=== PATIENT | male | born 1945 | race Caucasian/White ===

== ENCOUNTER 2017-07-27 17:11 | Inpatient (IN) ==
[2017-07-27] MEDS ORDERED: D5% in Water 1,000 ML IVC PRN (23:40)
[2017-07-27] MEDS ORDERED: Dextrose Gel 15 GM/37.5 ML TUBE PO PRN ×2 (23:40)
[2017-07-27] MEDS ORDERED: *HR* Dextrose 50 % in Water (Syg) 50 ML SYRINGE IVP PRN (23:40)
[2017-07-27] MEDS ORDERED: predniSONE 10 MG TABLET PO SCH (23:45)
[2017-07-27] MEDS ORDERED: Ipratropium/Albuterol Neb 3 ML IH PRN (23:53)
[2017-07-28 01:16] LABS: Bilirubin,Urine Negative (Negative); Blood,Urine Trace-intact (Negative); Clarity,Urine Clear (Clear); Color,Urine Yellow (Yellow); Glucose,Urine (UA) Normal (Normal); Ketones,Urine Negative (Negative); Leukocyte Esterase,Urine Negative (Negative); Nitrite,Urine Negative (Negative); Protein,Urine 30 mg/dL (Neg-Trace); Specific Gravity,Urine 1.015 (1.010-1.025); Urobilinogen,Urine Normal (Normal)
[2017-07-28 01:24] LABS: Bacteria,Urine Few per hpf (None-Few); RBC,Urine 0-3 per hpf (0-3); Squamous Epithelial Cell,Urine Few per lpf (None-Few)
[2017-07-28 04:58] LABS: Basophils % 0.2 %; Eosinophils # 0.1 K/mcL (0.0-0.6); Eosinophils % 0.7 %; Hematocrit 28.1 % (37.5-50.1); Hemoglobin 9.2 g/dL (12.9-16.9); Immature Granulocytes % 0.2 % (0-4); Lymphocytes # 1.1 K/mcL (0.6-4.6); Mean Corpuscular HGB Conc 32.7 g/dL (31.6-35.5); Mean Corpuscular Hemoglobin 29.5 pg (28.0-33.3); Mean Corpuscular Volume 90.1 fL (83.0-100.0); Mean Platelet Volume 9.7 fL (9.4-12.4); Monocytes # 0.4 K/mcL (0.0-1.3); Monocytes % 4.2 %; Neutrophils # 8.7 K/mcL (1.6-8.9); Platelet Count 212 K/mcL (140-400); Red Blood Count 3.12 M/mcL (4.19-5.50); Red Cell Distribution Width 14.1 % (11.5-14.5); Segmented Neutrophils % 83.7 %
[2017-07-28 05:05] LABS: INR 1.4; Prothrombin Time 15.6 Seconds (9.4-12.1)
[2017-07-28 05:16] LABS: BUN/Creatinine Ratio 29 (6-26); Blood Urea Nitrogen 22 mg/dL (8-23); Carbon Dioxide 32 mEq/L (23-29); Chloride 99 mEq/L (98-107); Glucose 184 mg/dL (70-105); Osmolality,Calculated 296 (280-300); Potassium 3.4 mEq/L (3.5-5.1); Sodium 139 mEq/L (136-145); eGFR For African Americans > 60 (> 60); eGFR For Non-African Americans > 60 (> 60)
[2017-07-28] MEDS: Budesonide/Formoterol 80/4.5 MDI IH SCH ×2 (09:03→21:38)
[2017-07-28] MEDS: Tiotropium 18 MCG inhalation IH SCH ×2 (09:04→09:09)
[2017-07-28] MEDS: Valsartan 160 MG TABLET PO SCH (09:09)
[2017-07-28] MEDS: *HR* Metformin 500 MG TABLET PO SCH ×2 (09:10→20:31)
[2017-07-28] MEDS: Aspirin 81 MG TAB.CHEW PO SCH (09:10)
[2017-07-28] MEDS: Apixaban 5 MG TABLET PO SCH ×2 (09:10→20:31)
[2017-07-28] MEDS: hydroCHLOROthiazide 25 MG TABLET PO SCH (09:10)
[2017-07-28] MEDS: dilTIAZem HCl 60 MG TABLET PO SCH ×3 (09:10→20:31)
[2017-07-28] MEDS: Insulin LISPRO 300 UNITS/3 ML VIAL SQ SCH ×4 (09:17→20:30)
--- NOTE | 2017-07-28 10:31 | Internal Med History&Physical ---
Date of Encounter: 07/28/17 Time of Encounter: 10:30 Assessment and Plan (1) Physical deconditioning Current visit: No Status: Acute here for pt, ot (2) Sacral decubitus ulcer, stage III Current visit: Yes Status: Acute wound consult (3) DM2 (diabetes mellitus, type 2) Current visit: Yes Status: Acute will continue home medication. add accuchecks and ssi. his hga1c was <7 at [facility] Qualifiers: Diabetes mellitus nursing home insulin use: without termite control servicer use Diabetes mellitus complication status: without complication Qualified Code(s): E11.9 - Type 2 diabetes mellitus without complications (4) COPD exacerbation Current visit: No Status: Acute I added by mouth prednisone at 60 mg daily with a taper. He may require some IV Solu-Medrol. He usually gets pretty bad COPD exacerbations we will see how he does with the by mouth prednisone his home medications and duo nebs. (5) Vitamin D deficiency Current visit: No Status: Acute cont home meds (6) Hyperlipidemia Current visit: No Status: Acute cont home meds Qualifiers: Hyperlipidemia type: mixed hyperlipidemia Qualified Code(s): E78.2 - Mixed hyperlipidemia (7) Obstructive sleep apnea Current visit: No Status: Acute (8) Hypertension Current visit: No Status: Acute will continue home medication Qualifiers: Hypertension type: essential hypertension Qualified Code(s): I10 - Essential (primary) hypertension Internal Medicine - H&P: HPI Chief complaint: here for rehab Admitted From: Hospital to Hospital Transfer Plans for Post Hospital Care: Home History of present illness: Mr. Gary is a 71 year old male Who had cervical disc surgery of C2-3-[address] [facility] at the beginning of June 2017. He was at home walking around the yard he tripped over his cane he fell on his left side hurt his left shoulder. He was having difficulty ambulating family brought him to [facility]. He had an x-ray of the shoulder hip-knee MRI of the cervical lumbar and thoracic spine. No acute changes were found he was sent here for rehabilitation. He has been frustrated with his ability to get around at home he struggling to care for himself his has to do most of his daily needs. He was not dizzy he did not pass out he did not have any syncope he did not have any chest pain or palpitations at the time of the event occurred. His leg is feeling better his shoulder is still a little bit sore but that is improving. He was having difficulty getting up back and forth to the bedside commode at [facility] he came here for rehabilitation to get him back to be independent in his own home. He does have a sacral decubitus that occurred while he was in the hospital at [facility] with the first surgery he was seeing wound care for that. It is been tracking deeper wound consult has been placed for that. He has been wheezing he does wheeze a lot he is on daily steroids chronically but his wheezing and shortness of breath has gotten a little bit worse he has a cough nothing comes up he does not have a fever or chills. He is not having any numbness tingling or focal weakness. Not have a headache he does not have vision changes. Past Med Surg Social Fam HX - Past Medical History Medical history: arthritis, atrial fibrillation, COPD, coronary artery disease, DVT, diabetes, GERD, hyperlipidemia, hypertension, other (vitamin d def,CRISTA, cervical disc disease) Psychiatric history: depression - Past Surgical History Surgical History: herniorrhaphy (umbilical 2001), other (disc cervical 2000, cervical c2,3,4,5,23 june 2017, cardiac cath 09/10/17,) - Social History Smoking Status: Former smoker Smokeless Tobacco Status: No Alcohol use: none Drug use: none - Family History Brother Hx Family Endocrine Disorder: Yes (Diabetes mellitus) Hx Family Neuromuscular Disorders: Yes (ezequiel gehrig) Daughter Hx Family Endocrine Disorder: Yes (Diabetes mellitus) Mother Living Status: Age at : 42 Hx Family Cardiac Disorders: Yes Internal Medicine - H&P: Meds Albuterol Sulfate [Albuterol Inhaler] 2 puff PO Q4HR PRN 01/18/15 [History] Aspirin 81 mg PO DAILY 01/18/15 [History] Valsartan [Diovan] 320 mg PO DAILY 01/18/15 [History] hydroCHLOROthiazide [Hydrochlorothiazide] 25 mg PO DAILY #30 tablet 04/02/15 [Rx ] Sertraline [Zoloft] 50 mg PO DAILY 06/18/17 [History] dilTIAZem HCl [Cardizem] 120 mg PO TID 06/18/17 [History] metFORMIN [Glucophage] 500 mg PO BID 06/18/17 [History] PredniSONE [Deltasone] 10 mg PO HS 07/17/17 [History] Acetaminophen 650 mg PO Q4HR PRN 07/27/17 [History] Apixaban [Eliquis] 5 mg PO BID 07/27/17 [History] Budesonide/Formoterol 80/4.5 [Symbicort 80/4.5] 1 puff PO BID 07/27/17 [History ] Ergocalciferol (VITAMIN D2) [Drisdol (50,000 Unit)] 50,000 units PO FR 07/27/17 [History] Ipratropium/Albuterol Neb [Duoneb] 3 ml PO Q4HR PRN 07/27/17 [History] Metoprolol [Lopressor] 25 mg PO BID 07/27/17 [History] Tiotropium [Spiriva] 18 mcg IH DAILY 07/27/17 [History] 3 Allergy/AdvReac Type Severity Reaction Status Date / Time lisinopril AdvReac Mild Cough Verified 03/27/15 22:57 All Systems PM: A 10-system review of systems was performed and is negative for pertinent findings except as documented above in the HPI. - Constitutional Constitutional: fatigue, falls, weakness (generalized), no fever(s), no night sweats - EENT Eyes: no change in vision - Cardiovascular Cardiovascular ROS IM: dyspnea on exertion, palpitations, no chest pain - Respiratory Respiratory: cough, wheezing - Gastrointestinal Gastrointestinal: no constipation, no diarrhea, no loose stools, no nausea, no vomiting - Genitourinary Genitourinary ROS male: no dysuria, no hematuria - Musculoskeletal Musculoskeletal ROS IM: limited range of motion (neck), muscle weakness ( generalized) - Integumentary Integumentary IM: skin ulcer (sacral decub), no pruritus, no rash - Neurological Neurological ROS: no focal weakness, no headache(s) - Psychiatric Psychiatric: depression (getting down with lack of mobility wants to increase his sertraline) - Hematologic/Lymphatic Hematologic/Lymphatic: easy bruising (with the anticoagulation) - Constitutional Vitals: Temp Pulse Resp BP Pulse Ox 97.9 F 76 16 136/77 98 07/28/17 07:00 07/28/17 07:00 07/28/17 07:00 07/28/17 07:00 07/28/17 07:00 General appearance: Present: A&O X 3, morbidly obese, no acute distress - Head Head exam: Present: atraumatic, normocephalic - Neck Neck exam general surgery: Present: supple. Absent: full ROM (decreased rom since surgery posterrior incision healing well), tenderness - Respiratory Respiratory exam: Present: prolonged expiratory phase, wheezes - Cardiovascular Cardiovascular exam: Present: RRR, +S1, +S2 - GI/Abdominal GI/Abdominal exam: Present: distended, normal bowel sounds, soft, no peritoneal signs. Absent: guarding, rebound, tenderness - Extremities Exam Extremities exam: Present: normal capillary refill, warm. Absent: pedal edema - Skin Skin exam: Present: dry, warm Internal Med - H&P Results - Labs CBC & Chem 7: 07/28/17 04:52 07/28/17 04:52 Labs: Short CBC 07/28/17 Range/Units 04:52 WBC 10.4 (4.3-11.1) K/mcL Hgb 9.2 L (12.9-16.9) g/dL Hct 28.1 L (37.5-50.1) % Plt Count 212 (140-400) K/mcL Neutrophils # 8.7 (1.6-8.9) K/mcL BMP 07/28/17 04:52 Sodium 139 Potassium 3.4 L Chloride 99 Carbon Dioxide 32 H BUN 22 Creatinine 0.76 Glucose 184 H Calcium 9.0 Urine 07/28/17 Range/Units 00:26 Urine Color Yellow (Yellow) Urine Clarity Clear (Clear) Urine pH 7.0 (5.0-8.0) pH Units Ur Specific [place] 1.015 (1.010-1.025) Urine Protein 30 H (Neg-Trace) mg/dL Urine Glucose (UA) Normal (Normal) mg/dL
[2017-07-28] MEDS: predniSONE 20 MG TABLET PO SCH (12:45)
[2017-07-28] MEDS: Acetaminophen 325 MG TABLET PO PRN (16:40)
[2017-07-29 05:19] LABS: Basophils % 0.1 %; Hemoglobin 8.8 g/dL (12.9-16.9); Immature Granulocytes % 0.5 % (0-4); Lymphocytes # 1.8 K/mcL (0.6-4.6); Lymphocytes % 17.2 %; Mean Corpuscular HGB Conc 32.6 g/dL (31.6-35.5); Mean Corpuscular Volume 89.1 fL (83.0-100.0); Mean Platelet Volume 10.2 fL (9.4-12.4); Monocytes # 0.5 K/mcL (0.0-1.3); Monocytes % 5.3 %; Neutrophils # 7.8 K/mcL (1.6-8.9); Platelet Count 241 K/mcL (140-400); Red Blood Count 3.03 M/mcL (4.19-5.50); Segmented Neutrophils % 76.9 %
[2017-07-29 05:36] LABS: BUN/Creatinine Ratio 33 (6-26); Blood Urea Nitrogen 36 mg/dL (8-23); Calcium 9.1 mg/dL (8.6-10.3); Carbon Dioxide 28 mEq/L (23-29); Chloride 99 mEq/L (98-107); Glucose 188 mg/dL (70-105); Osmolality,Calculated 299 (280-300); Potassium 3.5 mEq/L (3.5-5.1); Sodium 138 mEq/L (136-145); eGFR For African Americans > 60 (> 60); eGFR For Non-African Americans > 60 (> 60)
[2017-07-29] MEDS: predniSONE 20 MG TABLET PO SCH (08:21)
[2017-07-29] MEDS: Aspirin 81 MG TAB.CHEW PO SCH (08:21)
[2017-07-29] MEDS: dilTIAZem HCl 60 MG TABLET PO SCH ×3 (08:21→20:16)
[2017-07-29] MEDS: hydroCHLOROthiazide 25 MG TABLET PO SCH (08:21)
[2017-07-29] MEDS: predniSONE 10 MG TABLET PO SCH (08:21)
[2017-07-29] MEDS: Valsartan 160 MG TABLET PO SCH (08:22)
[2017-07-29] MEDS: *HR* Metformin 500 MG TABLET PO SCH ×2 (08:22→20:17)
[2017-07-29] MEDS: Apixaban 5 MG TABLET PO SCH ×2 (08:22→20:17)
[2017-07-29] MEDS: Acetaminophen 325 MG TABLET PO PRN ×2 (08:30→15:10)
[2017-07-29] MEDS: Budesonide/Formoterol 80/4.5 MDI IH SCH ×2 (08:31→23:02)
[2017-07-29] MEDS: Tiotropium 18 MCG inhalation IH SCH (08:31)
[2017-07-29] MEDS: Insulin LISPRO 300 UNITS/3 ML VIAL SQ SCH ×4 (08:33→20:20)
[2017-07-30] MEDS: Acetaminophen 325 MG TABLET PO PRN ×3 (05:49→16:37)
[2017-07-30] MEDS: Insulin LISPRO 300 UNITS/3 ML VIAL SQ SCH ×4 (08:18→20:27)
[2017-07-30] MEDS: Valsartan 160 MG TABLET PO SCH (08:28)
[2017-07-30] MEDS: dilTIAZem HCl 60 MG TABLET PO SCH ×3 (08:28→20:23)
[2017-07-30] MEDS: Apixaban 5 MG TABLET PO SCH ×2 (08:28→20:24)
[2017-07-30] MEDS: *HR* Metformin 500 MG TABLET PO SCH ×2 (08:28→20:24)
[2017-07-30] MEDS: predniSONE 10 MG TABLET PO SCH (08:28)
[2017-07-30] MEDS: hydroCHLOROthiazide 25 MG TABLET PO SCH (08:28)
[2017-07-30] MEDS: predniSONE 20 MG TABLET PO SCH (08:28)
[2017-07-30] MEDS: Aspirin 81 MG TAB.CHEW PO SCH (08:28)
[2017-07-30] MEDS: Budesonide/Formoterol 80/4.5 MDI IH SCH ×2 (08:29→22:15)
[2017-07-30] MEDS: Tiotropium 18 MCG inhalation IH SCH (08:29)
--- NOTE | 2017-07-30 19:36 | Internal Med Progress Note ---
Date of Encounter: 07/29/17 Time of Encounter: 13:00 - Assessment and plan (1) COPD exacerbation Current Visit: No Status: Acute Assessment and plan: There was some discrepancy regarding his steroid burst with taper. I advised nursing to discard the 10 mg per day prednisone dose and continue just on the increased dose that was added. He seems symptomatically unchanged from yesterday but his exam is unremarkable. Saturations are adequate. We will continue with steroids and when necessary aerosols as needed. (2) Sacral decubitus ulcer, stage III Current Visit: Yes Status: Acute Assessment and plan: Not examined today as patient is upright in chair. Different to wound care and Dr. Bonner. (3) DM2 (diabetes mellitus, type 2) Current Visit: Yes Status: Acute Assessment and plan: Clinically stable. We will continue as planned but will need to watch as he is on increased steroid burst. Qualifiers: Diabetes mellitus fci insulin use: without bed bug exterminator use Diabetes mellitus complication status: without complication Qualified Code(s): E11.9 - Type 2 diabetes mellitus without complications (4) Physical deconditioning Current Visit: No Status: Acute Assessment and plan: We will continue just therapies as planned. - Subjective Interval history: Patient seen in cross coverage for Dr. Bonner. The patient was evaluated by me yesterday but the note was not complete. This documentation is being completed today for that reason. Patient has no complaint of chest discomfort, dyspnea, orthopnea, palpitations, nausea or vomiting, constipation or diarrhea, other changes in bowel habits, difficulty with urination, rash or itching, or other new complaints, except as mentioned above. Review of systems is otherwise negative. - Constitutional Vitals: Temp Pulse Resp BP Pulse Ox 98.4 F 76 16 99/53 96 07/30/17 19:17 07/30/17 19:17 07/30/17 19:17 07/30/17 19:17 07/30/17 19:17 General appearance: Present: morbidly obese Exam: Examination: (Except as mentioned above): General: In no apparent distress. Alert and oriented 3. Nondiaphoretic. Head: Atraumatic and normocephalic. Respiratory: No use of accessory muscles. Lungs with sonorous rhonchi, throughout. Airflow seems good, however. Cardiovascular: Regular rate and rhythm without murmur appreciated. Abdomen: Bowel sounds are normal. No hepatosplenomegaly mass or tenderness appreciated. Obese and therefore difficult to palpate deeply. Patient is examined upright in chair and this also limits exam. Extremities: No cyanosis clubbing but does have 2+ left and 1+ right edema at calves and ankles. This is noted by patient to be unchanged from previous. Skin: Warm and non-diaphoretic with no new lesions noted. Internal Medicine: Result - Labs CBC & Chem 7: 07/29/17 05:00 07/29/17 05:00 - ABG Interpretation ABG results: PT/INR, D-dimer PT 15.6 Seconds (9.4-12.1) H 07/28/17 04:52 Consult Discharge Plan - Plan Referrals: Padmini Bonner MD [Primary Care Provider] -
--- NOTE | 2017-07-30 19:51 | Internal Med Progress Note ---
Date of Encounter: 07/30/17 Time of Encounter: 19:47 - Assessment and plan (1) COPD exacerbation Current Visit: No Status: Acute Assessment and plan: Much improved versus yesterday or day before, on steroid burst. (2) Sacral decubitus ulcer, stage III Current Visit: Yes Status: Acute Assessment and plan: Not examined today as patient is upright in chair, again. Differed to wound care and Dr. Bonner. (3) DM2 (diabetes mellitus, type 2) Current Visit: Yes Status: Acute Assessment and plan: Clinically stable. We will continue as planned but will need to watch as he is on increased steroid burst he is actually doing pretty well, given his steroids. Qualifiers: Diabetes mellitus long term care pharmacist insulin use: without residential use Diabetes mellitus complication status: without complication Qualified Code(s): E11.9 - Type 2 diabetes mellitus without complications (4) Physical deconditioning Current Visit: No Status: Acute Assessment and plan: We will continue therapies as planned. (5) Insomnia Current Visit: No Status: Acute Assessment and plan: Patient states that he has always had trouble sleeping away from home and this is a big problem here. He states that last night was the first night he slept reasonably at all, sleeping only about 2 hours. He requests a medication for sleep, tonight. Qualifiers: Insomnia type: primary Qualified Code(s): F51.01 - Primary insomnia - Subjective Interval history: Patient seen in cross coverage for Dr. Bonner. Patient is breathing much better today than yesterday. He has not needed oxygen until this evening when it was noted that he has a saturation of 99% on room air. He remains concerned about his DVT and this resolution with ankle edema. No other acute issues. Patient has no complaint of chest discomfort, dyspnea, orthopnea, palpitations, nausea or vomiting, constipation or diarrhea, other changes in bowel habits, difficulty with urination, rash or itching, or other new complaints, except as mentioned above. Review of systems is otherwise negative. - Constitutional Vitals: Temp Pulse Resp BP Pulse Ox 98.4 F 76 16 99/53 96 07/30/17 19:17 07/30/17 19:17 07/30/17 19:17 07/30/17 19:17 07/30/17 19:17 General appearance: Present: morbidly obese Exam: Examination: (Except as mentioned above): General: In no apparent distress. Alert and oriented 3. Nondiaphoretic. Head: Atraumatic and normocephalic. Respiratory: No use of accessory muscles. Lungs are nearly clear with only occasional sonorous rhonchi, no inhibition of airflow. Cardiovascular: Regular rate and rhythm without murmur appreciated. Abdomen: Bowel sounds are normal. No hepatosplenomegaly mass or tenderness appreciated. Obese and therefore difficult to palpate deeply. Patient is examined upright in chair and this also limits exam. Extremities: No cyanosis clubbing or change in edema. Still with 1-2+ pitting, left worse on right.Skin: Warm and non-diaphoretic with no new lesions noted. Cervical wound noted to be intact and dry. Internal Medicine: Result - Labs CBC & Chem 7: 07/29/17 05:00 07/29/17 05:00 - ABG Interpretation ABG results: PT/INR, D-dimer PT 15.6 Seconds (9.4-12.1) H 07/28/17 04:52 Consult Discharge Plan - Plan Referrals: Padmini Bonner MD [Primary Care Provider] -
[2017-07-31] MEDS: Acetaminophen 325 MG TABLET PO PRN ×2 (04:42→09:58)
--- NOTE | 2017-07-31 09:33 | Internal Med Progress Note ---
Date of Encounter: 07/31/17 Time of Encounter: 12:24 - Assessment and plan (1) Physical deconditioning Current Visit: Yes Status: Acute Assessment and plan: here for pt ot after deconditioning after cervical spine surgery (2) Sacral decubitus ulcer, stage III Current Visit: Yes Status: Acute Assessment and plan: wound care (3) DM2 (diabetes mellitus, type 2) Current Visit: Yes Status: Acute Assessment and plan: hga1c in range getting ssi and home meds Qualifiers: Diabetes mellitus correction insulin use: without extermination supervisor use Diabetes mellitus complication status: without complication Qualified Code(s): E11.9 - Type 2 diabetes mellitus without complications (4) COPD exacerbation Current Visit: No Status: Acute Assessment and plan: on home meds a steroid taper, improving (5) Vitamin D deficiency Current Visit: No Status: Acute Assessment and plan: home meds (6) Hyperlipidemia Current Visit: No Status: Acute Assessment and plan: home meds Qualifiers: Hyperlipidemia type: mixed hyperlipidemia Qualified Code(s): E78.2 - Mixed hyperlipidemia (7) Obstructive sleep apnea Current Visit: No Status: Acute (8) Hypertension Current Visit: No Status: Acute Assessment and plan: stable on home meds Qualifiers: Hypertension type: essential hypertension Qualified Code(s): I10 - Essential (primary) hypertension (9) Fall Current Visit: Yes Status: Acute Assessment and plan: likely due to the ambien he had last night for sleep. discussed no more sleeping pills for him now Qualifiers: Encounter type: initial encounter Qualified Code(s): W19.XXXA - Unspecified fall, initial encounter - Subjective Interval history: got ambien for sleep last night. fell early this morning. slid out of bed getting a water bottle that fell on the floor. denies dizzy, pereira, loc, no n/v. no cp no palp. he had reached too fall. states did not fall hard, denies pain or skin tear or injury. bowels and bladder ok, sob better cough better - Constitutional Vitals: Temp Pulse Resp BP Pulse Ox 97.7 F 72 20 118/68 95 07/31/17 00:30 07/31/17 00:30 07/31/17 00:30 07/31/17 00:30 07/31/17 00:30 General appearance: Present: A&O X 3, morbidly obese, no acute distress - Head Head exam: Present: atraumatic, normocephalic - Respiratory Respiratory exam: Present: CTAB - Cardiovascular Cardiovascular exam: Present: RRR, +S2. Absent: +S1, systolic murmur - GI/Abdominal GI/Abdominal exam: Present: normal bowel sounds, soft. Absent: guarding, tenderness, no peritoneal signs - Extremities Exam Extremities exam: Present: pedal edema, warm - Skin Skin exam: Present: dry, warm Internal Medicine: Result - Labs CBC & Chem 7: 07/29/17 05:00 07/29/17 05:00 - ABG Interpretation ABG results: PT/INR, D-dimer PT 15.6 Seconds (9.4-12.1) H 07/28/17 04:52 Consult Discharge Plan - Plan Referrals: Padmini Bonner MD [Primary Care Provider] -
[2017-07-31] MEDS: Aspirin 81 MG TAB.CHEW PO SCH (09:50)
[2017-07-31] MEDS: Apixaban 5 MG TABLET PO SCH ×2 (09:50→20:50)
[2017-07-31] MEDS: Tiotropium 18 MCG inhalation IH SCH (09:50)
[2017-07-31] MEDS: hydroCHLOROthiazide 25 MG TABLET PO SCH (09:50)
[2017-07-31] MEDS: dilTIAZem HCl 60 MG TABLET PO SCH ×3 (09:50→20:49)
[2017-07-31] MEDS: Valsartan 160 MG TABLET PO SCH (09:51)
[2017-07-31] MEDS: *HR* Metformin 500 MG TABLET PO SCH ×2 (09:51→20:50)
[2017-07-31] MEDS: Budesonide/Formoterol 80/4.5 MDI IH SCH ×2 (09:51→20:52)
[2017-07-31] MEDS: Insulin LISPRO 300 UNITS/3 ML VIAL SQ SCH ×4 (09:52→20:50)
[2017-07-31] MEDS: predniSONE 20 MG TABLET PO SCH (09:53)
[2017-07-31] MEDS: predniSONE 10 MG TABLET PO SCH (09:53)
[2017-07-31] MEDS ORDERED: Vancomycin (wt based) 1,000 MG VIAL IVPB SCH (15:00)
[2017-07-31 15:08] LABS: Basophils % 0.1 %; Hematocrit 25.1 % (37.5-50.1); Hemoglobin 8.2 g/dL (12.9-16.9); Immature Granulocytes % 1.4 % (0-4); Lymphocytes # 1.5 K/mcL (0.6-4.6); Lymphocytes % 8.5 %; Mean Corpuscular HGB Conc 32.7 g/dL (31.6-35.5); Mean Corpuscular Hemoglobin 29.4 pg (28.0-33.3); Monocytes # 0.4 K/mcL (0.0-1.3); Monocytes % 2.2 %; Neutrophils # 15.5 K/mcL (1.6-8.9); Nucleated Red Blood Cells 0.2 /100 WBC (0); Platelet Count 399 K/mcL (140-400); Red Blood Count 2.79 M/mcL (4.19-5.50); Red Cell Distribution Width 14.3 % (11.5-14.5); Segmented Neutrophils % 87.8 %
[2017-07-31 15:23] LABS: Calcium 9.5 mg/dL (8.6-10.3); Potassium 4.6 mEq/L (3.5-5.1)
[2017-07-31] MEDS: Cefepime HCl 2,000 MG in Water for inj. (sterile) 20 ML 20 ML IVP SCH (18:06)
--- NOTE | 2017-07-31 19:59 | Physcial Medicine-Consult Note ---
Date of Encounter: 07/31/17 Time of Encounter: 13:00 Physical Medicine - AP (1) Physical deconditioning Status: Acute Assessment and plan: Total assist for toileting. Slow gains. Had an off day today. His anemia and CKD may be playing into this as well as hold over for bowel meds and sleeping pill. He is very debilitated. Code(s): R53.81 - Other malaise SNOMED Code(s): 312617736 Physical Medicine - HPI - Data of Consult Requesting Physician: Padmini Bonner, Primary Care Provider: Padmini Bonner, - Consult Narrative History of present illness: Mr. Gary is a 71 year old male Who had cervical disc surgery of C2-3-4 5 and 6 at [facility] at the beginning of June 2017. He was at home walking around the yard he tripped over his cane he fell on his left side hurt his left shoulder. He was having difficulty ambulating family brought him to [facility]. CC: Padmini Bonner, Past Med Surg Social Fam HX - Past Medical History Medical history: arthritis, atrial fibrillation, COPD, coronary artery disease, DVT, diabetes, GERD, hyperlipidemia, hypertension, other (vitamin d def,CRISTA, cervical disc disease) Psychiatric history: depression - Past Surgical History Surgical History: herniorrhaphy (umbilical 2001), other (disc cervical 2000, cervical c2,3,4,5,23 june 2017, cardiac cath 09/10/17,) - Social History Smoking Status: Former smoker Smokeless Tobacco Status: No Alcohol use: none Drug use: none - Family History Mother Living Status: Age at : 42 Hx Family Cardiac Disorders: Yes Brother Hx Family Endocrine Disorder: Yes (Diabetes mellitus) Hx Family Neuromuscular Disorders: Yes (ezequiel gehrig) Daughter Hx Family Endocrine Disorder: Yes (Diabetes mellitus) Medications and Allergies Albuterol Sulfate [Albuterol Inhaler] 2 puff PO Q4HR PRN 01/18/15 [History] Aspirin 81 mg PO DAILY 01/18/15 [History] Valsartan [Diovan] 320 mg PO DAILY 01/18/15 [History] hydroCHLOROthiazide [Hydrochlorothiazide] 25 mg PO DAILY #30 tablet 04/02/15 [Rx ] Sertraline [Zoloft] 50 mg PO DAILY 06/18/17 [History] dilTIAZem HCl [Cardizem] 120 mg PO TID 06/18/17 [History] metFORMIN [Glucophage] 500 mg PO BID 06/18/17 [History] PredniSONE [Deltasone] 10 mg PO HS 07/17/17 [History] Acetaminophen 650 mg PO Q4HR PRN 07/27/17 [History] Apixaban [Eliquis] 5 mg PO BID 07/27/17 [History] Budesonide/Formoterol 80/4.5 [Symbicort 80/4.5] 1 puff PO BID 07/27/17 [History ] Ergocalciferol (VITAMIN D2) [Drisdol (50,000 Unit)] 50,000 units PO FR 07/27/17 [History] Ipratropium/Albuterol Neb [Duoneb] 3 ml PO Q4HR PRN 07/27/17 [History] Metoprolol [Lopressor] 25 mg PO BID 07/27/17 [History] Tiotropium [Spiriva] 18 mcg IH DAILY 07/27/17 [History] 3 Allergy/AdvReac Type Severity Reaction Status Date / Time lisinopril AdvReac Mild Cough Verified 03/27/15 22:57 All systems: reviewed and no additional remarkable complaints except as stated Physical Medicine - Exam - Constitutional Vitals: Temp Pulse Resp BP Pulse Ox 98.0 F 75 18 108/67 95 07/31/17 19:16 07/31/17 19:16 07/31/17 19:16 07/31/17 19:16 07/31/17 19:16 - Extremities Exam Additional comments: Strength 4-/5 throughout. Physical Medicine - Results - Labs CBC & Chem 7: 07/31/17 14:55 07/31/17 14:55 Labs: Short CBC 07/31/17 Range/Units 14:55 WBC 17.6 H D (4.3-11.1) K/mcL Hgb 8.2 L (12.9-16.9) g/dL Hct 25.1 L (37.5-50.1) % Plt Count 399 D (140-400) K/mcL Neutrophils # 15.5 H (1.6-8.9) K/mcL BMP 07/31/17 14:55 Sodium 138 Potassium 4.6 Chloride 101 Carbon Dioxide 25 BUN 78 H Creatinine 1.62 H Glucose 184 H Calcium 9.5 Anemia of CKD, Leucocytosis - Impressions ITS Impressions Chest X-Ray 07/28/17 11:02 IMPRESSION: No acute process. Findings of COPD. Stable exam. D/ / Curtis Hill MD / Curtis Hill MD Interpreting Provider: Curtis Hill MD Consult Discharge Plan - Plan Referrals: Padmini Bonner MD [Primary Care Provider] -
[2017-08-01] MEDS: Cefepime HCl 2,000 MG in Water for inj. (sterile) 20 ML 20 ML IVP SCH ×2 (06:11→16:58)
[2017-08-01] MEDS: Insulin LISPRO 300 UNITS/3 ML VIAL SQ SCH ×3 (07:47→16:59)
[2017-08-01] MEDS: dilTIAZem HCl 60 MG TABLET PO SCH ×3 (07:47→18:56)
[2017-08-01] MEDS: hydroCHLOROthiazide 25 MG TABLET PO SCH (07:59)
[2017-08-01] MEDS: *HR* Metformin 500 MG TABLET PO SCH (08:04)
[2017-08-01] MEDS: predniSONE 20 MG TABLET PO SCH (08:04)
[2017-08-01] MEDS: Aspirin 81 MG TAB.CHEW PO SCH (08:04)
[2017-08-01] MEDS: Valsartan 160 MG TABLET PO SCH (08:04)
[2017-08-01] MEDS: Tiotropium 18 MCG inhalation IH SCH (08:04)
[2017-08-01] MEDS: predniSONE 10 MG TABLET PO SCH (08:04)
[2017-08-01] MEDS: Apixaban 5 MG TABLET PO SCH (08:04)
[2017-08-01] MEDS: Budesonide/Formoterol 80/4.5 MDI IH SCH (08:05)
[2017-08-01] MEDS ORDERED: Lidocaine 1% 20 ML MDV INFILT ONE (13:42)
[2017-08-01] MEDS ORDERED: 0.9 % Sodium Chloride 1,000 ML IVC ONE (15:53)
[2017-08-01 16:44] LABS: Calcium 8.6 mg/dL (8.6-10.3); Potassium 3.7 mEq/L (3.5-5.1)
--- NOTE | 2017-08-01 16:49 | Internal Med Progress Note ---
Date of Encounter: 08/01/17 - Assessment and plan (1) Physical deconditioning Current Visit: Yes Status: Acute Assessment and plan: here for pt ot after deconditioning after cervical spine surgery (2) Sacral decubitus ulcer, stage III Current Visit: Yes Status: Acute Assessment and plan: He went down to [place] today for PICC line for IV antibiotics he also saw Sever he is to get a bone biopsy on here at [facility]. We will continue the cefepime and vancomycin. He also had an MRI today as well. Awaiting the final report he had his blood pressures a been a little low I added some IV fluids this could be due to a recent change in his blood pressure pills by cardiology we will hold those and see how his pressure response to IV fluids lactic acid has been drawn. Blood cultures are pending (3) DM2 (diabetes mellitus, type 2) Current Visit: Yes Status: Acute Assessment and plan: hga1c in range getting ssi and home meds Qualifiers: Diabetes mellitus fpc insulin use: without intermediate accountant use Diabetes mellitus complication status: without complication Qualified Code(s): E11.9 - Type 2 diabetes mellitus without complications (4) COPD exacerbation Current Visit: No Status: Acute Assessment and plan: on home meds a steroid taper, improving (5) Vitamin D deficiency Current Visit: No Status: Acute Assessment and plan: home meds (6) Hyperlipidemia Current Visit: No Status: Acute Assessment and plan: home meds Qualifiers: Hyperlipidemia type: mixed hyperlipidemia Qualified Code(s): E78.2 - Mixed hyperlipidemia (7) Obstructive sleep apnea Current Visit: No Status: Acute (8) Hypertension Current Visit: No Status: Acute Assessment and plan: Blood pressure is been lower today holding the Lopressor. In the IV fluids. Qualifiers: Hypertension type: essential hypertension Qualified Code(s): I10 - Essential (primary) hypertension (9) Fall Current Visit: Yes Status: Acute Qualifiers: Encounter type: initial encounter Qualified Code(s): W19.XXXA - Unspecified fall, initial encounter - Subjective Interval history: He had quite an eventful day he went down to [facility] to see Dr. Fisher plan is to get a bone biopsy done in the area of his sacral decubitus about osteomyelitis he had an MRI he also got a PICC line his blood pressures up in the low started him on IV fluids he had recent adjustments to his medications which we had to hold his Lopressor. - Constitutional Vitals: Temp Pulse Resp BP Pulse Ox 97.5 F L 88 14 82/45 96 08/01/17 07:00 08/01/17 07:00 08/01/17 08:35 08/01/17 14:38 08/01/17 08:35 General appearance: Present: A&O X 3, morbidly obese, no acute distress Internal Medicine: Result - Labs CBC & Chem 7: 07/31/17 14:55 08/01/17 16:05 Labs: BMP 08/01/17 16:05 Sodium 137 Potassium 3.7 Chloride 103 Carbon Dioxide 23 BUN 109 H Creatinine 1.45 H Glucose 279 H Calcium 8.6 - ABG Interpretation ABG results: PT/INR, D-dimer PT 15.6 Seconds (9.4-12.1) H 07/28/17 04:52 Consult Discharge Plan - Plan Referrals: Padmini Bonner MD [Primary Care Provider] -
[2017-08-01 17:10] LABS: Basophils % 0.1 %; Hematocrit 16.2 % (37.5-50.1); Immature Granulocytes % 4.6 % (0-4); Lymphocytes # 1.8 K/mcL (0.6-4.6); Mean Corpuscular HGB Conc 32.7 g/dL (31.6-35.5); Mean Corpuscular Hemoglobin 29.8 pg (28.0-33.3); Mean Platelet Volume 9.9 fL (9.4-12.4); Monocytes # 0.5 K/mcL (0.0-1.3); Monocytes % 2.4 %; Neutrophils # 19.2 K/mcL (1.6-8.9); Nucleated Red Blood Cells 1.9 /100 WBC (0); Platelet Count 314 K/mcL (140-400); Red Blood Count 1.78 M/mcL (4.19-5.50); Red Cell Distribution Width 14.7 % (11.5-14.5); Segmented Neutrophils % 84.9 %
[2017-08-01 17:17] LABS: Hemoglobin 5.3 g/dL (12.9-16.9)
[2017-08-01 17:54] LABS: Platelet Estimate Normal (Normal)
[2017-08-01 17:55] LABS: Macrocytosis Present (Not Present); Microcytosis Present (Not Present)
--- NOTE | 2017-08-01 18:11 | Discharge Summary ---
Orders not resulted at time of discharge: Pending orders 07/31/17 15:00 Culture,Blood [BC] Stat 08/01/17 17:27 Red Blood Cells [BBK] Stat Type and Screen [BBK] Stat 08/02/17 14:00 Vancomycin,Trough Timed Date of Encounter: 08/01/17 Time of Encounter: 18:02 - Discharge Diagnosis (1) Sepsis Priority: Primary Status: Acute Comments: He has an elevated lactic acid he is hypotensive. He was getting IV fluids. His blood work came back with a low hemoglobin of 5.3 ESTEFANIA of blood transfusion is also being arranged his blood pressure medications are being held. His been on vancomycin and cefepime since yesterday. He had a PICC line placed today. His white count is over 22,000. Blood cultures are pending from yesterday. I called [facility] to transfer back. Patient are agreeable to transfer to a higher care facility. Qualifiers: Sepsis type: sepsis due to unspecified organism Qualified Code(s): A41.9 - Sepsis, unspecified organism (2) Physical deconditioning Priority: Secondary Status: Acute Comments: He was here for PT and OT but he has not been able to do those today he is too sick to complete this. (3) DM2 (diabetes mellitus, type 2) Priority: Primary Status: Acute Comments: He was on metformin at that has been have to be held due to the fact that his creatinine has been elevated today. He was getting Accu-Cheks and has not needed any sliding scale insulin at this point. Qualifiers: Diabetes mellitus penitentiary insulin use: without penitentiary use Diabetes mellitus complication status: without complication Qualified Code(s): E11.9 - Type 2 diabetes mellitus without complications (4) COPD exacerbation Priority: Secondary Status: Acute Comments: He is on an oral prednisone taper. He is chronically on 10 mg of prednisone a day for his severe COPD. He also has oxygen at home. 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 He started having lower blood pressures that had to be held. He did receive some IV fluids today. The hypotension is likely due to the sepsis. Qualifiers: Hypertension type: essential hypertension Qualified Code(s): I10 - Essential (primary) hypertension (9) Fall Priority: Secondary Status: Acute Comments: He had a fall on the front yard at home after he tripped over his cane. He was seen up at [facility] and had his entire cervical to sacral spine MRI. He also had a fall here in the hospital after he was given a one-time dose of Ambien 5 mg that is since been held. At that point time he was reaching to get a water bottle that it fallen on the floor. Qualifiers: Encounter type: initial encounter Qualified Code(s): W19.XXXA - Unspecified fall, initial encounter (10) Anemia Priority: Secondary Status: Acute Comments: He is on Eliquis for an acute DVT. We will have to hold this and consider whether to have a IVC filter placed and possible EGD colonoscopy. Transfusion is being arranged and he is being transferred to [facility]. Qualifiers: Anemia type: unspecified type Qualified Code(s): D64.9 - Anemia, unspecified (11) Acute renal injury Priority: Secondary Status: Acute Comments: Likely due to the hypotension he is in vancomycin he is getting IV fluids (12) Decubitus ulcer of sacral region, stage 4 Priority: Secondary Status: Acute Comments: An MRI has been ordered but the MRI truck is not here until later on in the week. so that had it has not been done. He did see surgery and wound care who recommended a bone biopsy to evaluate for osteomyelitis. He had a PICC line placed for long-term IV antibiotics he has been on vancomycin and cefepime since yesterday (13) DVT (deep venous thrombosis) Priority: Secondary Status: Acute Comments: He is currently Eliquis for treatment for this but is going to have to be held and consider a IVC filter placement he is being transferred to [facility] Qualifiers: DVT location: lower extremity Affected thrombotic vein of extremity: femoral Chronicity: acute Laterality: left Qualified Code(s): I82.412 - Acute embolism and thrombosis of left femoral vein Hospital course: Mr. Gary is a 71 year old male Who came here for deconditioning after he had a C-spine surgery in June. He went home he had a fall in his yard he went to [facility] for the deconditioning and difficulty walking. He had an MRI of the cervical to sacral spine that did not show any acute problem but some lumbar stenosis. He has had a complicated course after this surgery he developed an acute left DVT for which she was placed on Eliquis. He also developed a sacral decubitus with his surgery. He saw wound care yesterday it was a stage IV there was concern with osteomyelitis so today a PICC line was placed. yesterday vancomycin and cefepime was started. Today he started having hypotension. He received IV fluids he is hemoglobin 5.3 had blood transfusion is being arranged. Blood cultures are pending from yesterday. His white count is 22,000. [facility] was contacted for transfer for sepsis. they wanted him sent to the er Discharge discussed with: patient, family - Time Spent with Patient Total time spent providing and/or coordinating discharge services: - Discharge Medications Home Medications: Albuterol Sulfate [Albuterol Inhaler] 2 puff PO Q4HR PRN 01/18/15 [History] Aspirin 81 mg PO DAILY 01/18/15 [History] Valsartan [Diovan] 320 mg PO DAILY 01/18/15 [History] dilTIAZem HCl [Cardizem] 120 mg PO TID 06/18/17 [History] metFORMIN [Glucophage] 500 mg PO BID 06/18/17 [History] PredniSONE [Deltasone] 10 mg PO HS 07/17/17 [History] Acetaminophen 650 mg PO Q4HR PRN 07/27/17 [History] Apixaban [Eliquis] 5 mg PO BID 07/27/17 [History] Budesonide/Formoterol 80/4.5 [Symbicort 80/4.5] 1 puff PO BID 07/27/17 [History ] Ergocalciferol (VITAMIN D2) [Drisdol (50,000 Unit)] 50,000 units PO FR 07/27/17 [History] Ipratropium/Albuterol Neb [Duoneb] 3 ml PO Q4HR PRN 07/27/17 [History] Tiotropium [Spiriva] 18 mcg IH DAILY 07/27/17 [History] Acetaminophen [Tylenol] 650 mg PO Q4H PRN tablet 08/01/17 [Rx] Albuterol Sulfate [Albuterol Inhaler] 2 puff IH [id number] PRN inhaler 08/01/17 [ Rx] Apixaban [Eliquis] 5 mg PO BID tablet 08/01/17 [Rx] Aspirin 81 mg PO DAILY tab.chew 08/01/17 [Rx] Budesonide/Formoterol 80/4.5 [Symbicort 80/4.5] 2 puff IH BIDR inhaler [Rx] Cefepime HCl [Maxipime] 2,000 mg IVP Q12HR vial 08/01/17 [Rx] Ergocalciferol (VITAMIN D2) [Drisdol (50,000 Unit)] 50,000 unit PO FR capsule 08/01/17 [Rx] Ipratropium/Albuterol Neb [Duoneb] 3 ml IH [id number] PRN inhsol 08/01/17 [Rx] Metoprolol [Lopressor] 12.5 mg PO BID tablet 08/01/17 [Rx] Polyethylene Glycol 3350 [MiraLAX] 17 gm PO DAILY PRN powd.pack 08/01/17 [Rx] Sertraline [Zoloft] 100 mg PO DAILY tablet 08/01/17 [Rx] Tiotropium [Spiriva] 18 mcg IH DAILYR inh 08/01/17 [Rx] Valsartan [Diovan] 320 mg PO DAILY tablet 08/01/17 [Rx] Vancomycin [Vancocin] 1,500 mg IVPB Q12H vial 08/01/17 [Rx] Vancomycin [Vancocin] 1,500 mg IVPB Q24H vial 08/01/17 [Rx] Vancomycin [Vancocin] 750 mg IVPB Q1H vial 08/01/17 [Rx] dilTIAZem HCl [Cardizem] 120 mg PO TID tablet 08/01/17 [Rx] metFORMIN [Glucophage] 500 mg PO BID tablet 08/01/17 [Rx] predniSONE [PredniSONE] 10 mg PO DAILY tablet 08/01/17 [Rx] predniSONE [PredniSONE] 60 mg PO DAILY tablet 08/01/17 [Rx] Allergies/Adverse Reactions: 3 Allergy/AdvReac Type Severity Reaction Status Date / Time lisinopril AdvReac Mild Cough Verified 03/27/15 22:57 Date of admission: 07/27/17 22:14 Primary care physician: Padmini Bonner, Consults: 07/27/17 23:36 Consult to Occupational Therapy [CONS] Routine Comment: Evaluate, develop and implement POC Reason for Consult: rehab/weakness Does patient have active BEDREST order?: No Is patient medically & hemodynamically stable?: Yes Consult to Physical Therapy [CONS] Routine Comment: Evaluate, develop and implement POC Reason for Consult: rehab/weakness Does patient have active BEDREST order?: No Is patient medically & hemodynamically stable?: Yes Consult to Wound Care [CONS] Routine Reason for Consult: wound- pressure ulcer to coccyx Call Completed: No 08/01/17 07:36 PICC Consult [Consult to Invasive Line Access Team] [CONS] Routine Reason for Consult: retirement IV ATB osteomylitis Line Type: PICC 08/01/17 13:42 Consult to Invasive Line Access Team [CONS] Routine Reason for Consult: Picc Line Insertion Line Type: PICC - Constitutional Vitals: Temp Pulse Resp BP Pulse Ox 97.5 F L 88 14 82/45 96 08/01/17 07:00 08/01/17 07:00 08/01/17 08:35 08/01/17 14:38 08/01/17 08:35 General appearance: Present: A&O X 3, morbidly obese, no acute distress - Head Head exam: Present: atraumatic, normocephalic - Neck Neck exam general surgery: Present: supple. Absent: full ROM, lymphadenopathy - Respiratory Respiratory exam: Present: wheezes - Cardiovascular Cardiovascular exam: Present: RRR - GI/Abdominal GI/Abdominal exam: Present: distended, normal bowel sounds, soft, no peritoneal signs. Absent: guarding - Extremities Exam Extremities exam: Present: pedal edema, warm. Absent: mottling - Patient Status Disposition: Admitted As Inpatient Condition: Critical Overall status at discharge: patient is not back to baseline - Discharge Instructions Follow Up With: Padmini Bonner MD [Primary Care Provider] -
[2017-08-01] MEDS ORDERED: 0.9 % Sodium Chloride 1,000 ML ONE (19:31)
[2017-08-01 20:43] VITALS: BP 95/41
[2017-08-01] MEDS ORDERED: Aminoglycoside Consult 1 EACH MC ONE (21:33)
== END 2017-08-01 21:34 | disposition other institution (70) | DRG 945 ==
LOC: INPGRE 22:14
PROVIDERS: ADMIT Family Medicine; ATTEND Family Medicine

== ENCOUNTER 2017-08-29 21:27 | Inpatient (IN) ==
[2017-08-29] MEDS ORDERED: Acetaminophen 325 MG TABLET PO PRN (22:21)
[2017-08-29] MEDS ORDERED: Nitroglycerin 0.4 MG TAB.SUBL SL PRN (22:28)
[2017-08-29] MEDS ORDERED: *HR* Dextrose 50 % in Water (Syg) 50 ML SYRINGE IVP PRN (23:22)
[2017-08-29] MEDS ORDERED: Dextrose Gel 15 GM/37.5 ML TUBE PO PRN ×2 (23:22)
[2017-08-29] MEDS ORDERED: D5% in Water 1,000 ML IVC PRN (23:22)
[2017-08-29] MEDS: *HR* OxyCODONE Immed Rel 5 MG TABLET PO PRN (23:28)
[2017-08-30 01:13] LABS: Bilirubin,Urine Negative (Negative); Blood,Urine Trace-lysed (Negative); Clarity,Urine Slightly Cloudy (Clear); Glucose,Urine (UA) Normal (Normal); Ketones,Urine Negative (Negative); Leukocyte Esterase,Urine Moderate (Negative); Nitrite,Urine Positive (Negative); Protein,Urine 30 mg/dL (Neg-Trace); Specific Gravity,Urine 1.015 (1.010-1.025); Urobilinogen,Urine Normal (Normal)
[2017-08-30 01:20] LABS: Color,Urine Yellow (Yellow)
[2017-08-30 01:22] LABS: Bacteria,Urine Moderate per hpf (None-Few); Hyaline Casts,Urine Few per lpf (None-Few); RBC,Urine 0-3 per hpf (0-3)
[2017-08-30] MEDS: Ipratropium/Albuterol Neb 3 ML IH PRN (04:44)
[2017-08-30 06:13] LABS: Basophils % 0.1 %; Eosinophils # 0.1 K/mcL (0.0-0.6); Eosinophils % 0.8 %; Hematocrit 24.8 % (37.5-50.1); Hemoglobin 7.8 g/dL (12.9-16.9); Immature Granulocytes % 0.3 % (0-4); Lymphocytes # 1.8 K/mcL (0.6-4.6); Mean Corpuscular HGB Conc 31.5 g/dL (31.6-35.5); Mean Corpuscular Volume 92.2 fL (83.0-100.0); Mean Platelet Volume 9.6 fL (9.4-12.4); Monocytes # 0.9 K/mcL (0.0-1.3); Monocytes % 7.1 %; Neutrophils # 9.7 K/mcL (1.6-8.9); Platelet Count 286 K/mcL (140-400); Red Blood Count 2.69 M/mcL (4.19-5.50); Red Cell Distribution Width 16.3 % (11.5-14.5); Segmented Neutrophils % 77.7 %
[2017-08-30 06:16] LABS: INR 1.1; Prothrombin Time 11.5 Seconds (9.4-12.1)
[2017-08-30 06:18] LABS: Activated Partial Thrombo Time 29.4 Seconds (26.0-36.0)
[2017-08-30 06:28] LABS: BUN/Creatinine Ratio 24 (6-26); Blood Urea Nitrogen 21 mg/dL (8-23); Calcium 8.9 mg/dL (8.6-10.3); Carbon Dioxide 30 mEq/L (23-29); Chloride 97 mEq/L (98-107); Glucose 141 mg/dL (70-105); Osmolality,Calculated 287 (280-300); Potassium 3.1 mEq/L (3.5-5.1); Sodium 136 mEq/L (136-145); eGFR For African Americans > 60 (> 60); eGFR For Non-African Americans > 60 (> 60)
[2017-08-30] MEDS: *HR* Metformin 500 MG TABLET PO SCH ×2 (08:07→17:45)
[2017-08-30] MEDS: Zinc Sulfate 220 MG CAPSULE PO SCH ×2 (08:07→19:42)
[2017-08-30] MEDS: Sennosides/Docusate Sodium TABLET PO SCH ×2 (08:07→19:42)
[2017-08-30] MEDS: Diltiazem CD (24hr) 180 MG CAPSULE PO SCH (08:07)
[2017-08-30] MEDS: predniSONE 10 MG TABLET PO SCH (08:07)
[2017-08-30] MEDS: Valsartan 160 MG TABLET PO SCH (08:08)
[2017-08-30] MEDS: hydroCHLOROthiazide 25 MG TABLET PO SCH (08:08)
[2017-08-30] MEDS: Insulin LISPRO 300 UNITS/3 ML VIAL SQ SCH ×4 (08:08→21:58)
[2017-08-30] MEDS: Ascorbic Acid 500 MG TABLET PO SCH (08:08)
[2017-08-30] MEDS: Gabapentin 300 MG CAPSULE PO SCH ×3 (08:09→19:41)
[2017-08-30] MEDS: *HR* OxyCODONE Immed Rel 5 MG TABLET PO PRN ×3 (08:14→19:42)
[2017-08-30] MEDS: Tiotropium 18 MCG inhalation IH SCH (08:18)
[2017-08-30] MEDS: Budesonide/Formoterol 80/4.5 MDI IH SCH ×2 (08:18→21:58)
--- NOTE | 2017-08-30 08:28 | Internal Med History&Physical ---
Date of Encounter: 08/30/17 Time of Encounter: 14:40 Assessment and Plan (1) Physical deconditioning Current visit: Yes Status: Acute He is here for PT OT. We will advance physical therapy as tolerated to prevent his risk of falls get him back to his home environment. (2) Vitamin D deficiency Current visit: Yes Status: Acute Continue home medication (3) Hyperlipidemia Current visit: Yes Status: Acute Home medication Qualifiers: Hyperlipidemia type: mixed hyperlipidemia Qualified Code(s): E78.2 - Mixed hyperlipidemia (4) Obstructive sleep apnea Current visit: Yes Status: Acute (5) Hypertension Current visit: Yes Status: Acute Continue his home medication Qualifiers: Hypertension type: essential hypertension Qualified Code(s): I10 - Essential (primary) hypertension (6) Sacral decubitus ulcer, stage III Current visit: Yes Status: Acute Wound care will continue to follow this (7) DM2 (diabetes mellitus, type 2) Current visit: Yes Status: Acute Is on insulin and sliding scale woke check Accu-Cheks and diabetic diet Qualifiers: Diabetes mellitus correction insulin 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 Diabetes mellitus complication status: without complication Qualified Code(s): E11.9 - Type 2 diabetes mellitus without complications; Z79.4 - senior care (current) use of insulin (8) Anemia Current visit: Yes Status: Acute Is due to his GI bleed it has been stable continue follow hemoglobin continue by mouth iron supplementation Qualifiers: Anemia type: iron deficiency Iron deficiency anemia type: chronic blood loss Qualified Code(s): D50.0 - Iron deficiency anemia secondary to blood loss (chronic) (9) DVT (deep venous thrombosis) Current visit: Yes Status: Acute He was on anticoagulation with Eliquis he developed a GI bleed he was unable tolerate that currently he is just having an IVC filter Qualifiers: DVT location: lower extremity Affected thrombotic vein of extremity: femoral Chronicity: acute Laterality: left Qualified Code(s): I82.412 - Acute embolism and thrombosis of left femoral vein (10) S/P IVC filter Current visit: Yes Status: Chronic This is for his acute DVT after he had a GI bleed on (11) GI bleed Current visit: Yes Status: Acute His hemoglobin has remained's low it is stable he did have a dark stool yesterday his hemoglobin was stable we will continue to follow his hemoglobin and continue by mouth iron supplementation. He is on a PPI he has had a colonoscopy an EGD Qualifiers: GI bleed type/associated pathology: gastritis Gastritis type: chronic gastritis Qualified Code(s): K29.51 - Unspecified chronic gastritis with bleeding (12) COPD (chronic obstructive pulmonary disease) Current visit: Yes Status: Acute Weaned down to his 10 mg prednisone will continue his DuoNeb's oxygen as needed at home medication. Qualifiers: COPD type: unspecified COPD Qualified Code(s): J44.9 - Chronic obstructive pulmonary disease, unspecified (13) DVT prophylaxis Current visit: Yes Status: Acute Is an IVC filter we will have him ambulate. He had a GI bleed that required 3 units of packed red cells last time he was on anticoagulation (14) History of depression Current visit: Yes Status: Chronic He is currently on Zoloft for this (15) UTI (urinary tract infection) Current visit: Yes Status: Acute Urine culture has been sent T has nitrites leukocytes and blood in his urine. We will go ahead and start Levaquin awaiting the cultures. His white count is a little bit elevated today we will keep close eye on that. Qualifiers: Urinary tract infection type: acute cystitis Hematuria presence: with hematuria Qualified Code(s): N30.01 - Acute cystitis with hematuria Internal Medicine - H&P: HPI Chief complaint: here for rehab Admitted From: Hospital to Hospital Transfer History of present illness: Mr. Gary is a 71 year old male Who is had quite a complicated medical history since June. This is the third time he is back here to rehabilitation. He had a lumbar laminectomy of L2-L3 L4 -L5 along with medial fasciectomy and foraminotomies on 08/24/[address] [facility]. He developed weakness in his lower extremities was unable to walk while at rehabilitation. He had severe lumbar stenosis and was referred for surgical evaluation. He is back for rehabilitation after this procedure this whole thing started back in June with a cervical laminectomy and fusion and he came here for rehabilitation at which point time. He had a acute DVT shortly after surgery. He did not do well at home he came to [place] for rehabilitation. While here he developed hypotension anemia due to a GI bleed he had had transfusions he had EGD colonoscopy. As transfer back up to [place] for the GI bleed. He came back here and also when he developed progressive lower leg weakness and lumbar stenosis and he was transferred back up to [place]. Had quite a history with his COPD he is on chronic prednisone every time we try to wean off that he has difficulty breathing. He also has a sacral decubitus that is been followed by wound care here it has improved he has had MRIs of his entire spine is at MRI of his sacrum pelvis with the decub.pain is acceptable he does have increased urination and hard to get to the bathroom Past Med Surg Social Fam HX - Past Medical History Medical history: arthritis, atrial fibrillation, COPD, coronary artery disease, DVT, diabetes, GERD, GI bleed, hyperlipidemia, hypertension, other Additional medical history: Pressure ulcer coccyx, anemia, Vit D Deficiency, lumbar and cervical disc disease Psychiatric history: depression - Past Surgical History Surgical History: herniorrhaphy, IVC Filter, other Additional surgical history: neck surgery, lumbar fusion, bleeding ulcer egd and colonoscopy 07/2017, 08/24/17 L2,L3,L4,L5 laminectomy iwth medial facetectomy and foraminotomies. - Social History Smoking Status: Former smoker Smokeless Tobacco Status: No Alcohol use: none Drug use: none - Family History Mother Living Status: Hx Family Cardiac Disorders: Yes Brother Hx Family Endocrine Disorder: Yes (Diabetes mellitus) Hx Family Neuromuscular Disorders: Yes (ezequiel geig) Daughter Hx Family Endocrine Disorder: Yes (Diabetes mellitus) Internal Medicine - H&P: Meds Acetaminophen [Tylenol] 650 mg PO Q4HR PRN tablet 08/22/17 [Rx] Albuterol Sulfate [Albuterol Inhaler] 2 puff IH [id number] PRN inhaler 08/22/17 [ Rx] Ascorbic Acid [Vitamin C] 500 mg PO DAILY tablet 08/22/17 [Rx] Budesonide/Formoterol 80/4.5 [Symbicort 80/4.5] 2 puff IH BIDR inhaler [Rx] Buspirone HCl [Buspar] 15 mg PO BID PRN tablet 08/22/17 [Rx] Diltiazem CD (24hr) [Cardizem CD] 360 mg PO DAILY cap.er.24h 08/22/17 [Rx] Ergocalciferol (VITAMIN D2) [Drisdol (50,000 Unit)] 50,000 unit PO Fr@0900 capsule 08/22/17 [Rx] Ferrous Sulfate 325 mg PO TIDWM tablet 08/22/17 [Rx] Gabapentin [Neurontin] 300 mg PO TID 1 Days #0 capsule 08/22/17 [Rx] Ipratropium/Albuterol Neb [Duoneb] 3 ml IH [id number] PRN inhsol 08/22/17 [Rx] Metoprolol [Lopressor] 50 mg PO BID tablet 08/22/17 [Rx] Nitroglycerin 0.4 mg SL Q5MIN PRN tab.subl 08/22/17 [Rx] Polyethylene Glycol 3350 [MiraLAX] 17 gm PO DAILY PRN powd.pack 08/22/17 [Rx] Potassium Chloride 20 meq PO DAILY tab.er.prt 08/22/17 [Rx] Sennosides/Docusate Sodium [Senna Plus] 1 each PO BID PRN tablet 08/22/17 [Rx] Sertraline [Zoloft] 100 mg PO DAILY tablet 08/22/17 [Rx] Tiotropium [Spiriva] 18 mcg IH DAILYR inh 08/22/17 [Rx] Valsartan [Diovan] 160 mg PO DAILY tablet 08/22/17 [Rx] Zinc Sulfate 220 mg PO BID capsule 08/22/17 [Rx] hydroCHLOROthiazide [Hydrochlorothiazide] 25 mg PO DAILY tablet 08/22/17 [Rx] metFORMIN [Glucophage] 500 mg PO BIDWM tablet 08/22/17 [Rx] predniSONE [PredniSONE] 10 mg PO DAILY tablet 08/22/17 [Rx] Insulin DETEMIR [Levemir] 10 unit SQ HS 08/30/17 [History] Omeprazole [PriLOSEC] 20 mg PO BIDAC 08/30/17 [History] Tamsulosin [Flomax] 0.4 mg PO DAILY 08/30/17 [History] 3 Allergy/AdvReac Type Severity Reaction Status Date / Time lisinopril AdvReac Mild Cough Verified 08/09/17 20:33 All Systems PM: A 10-system review of systems was performed and is negative for pertinent findings except as documented above in the HPI. - Constitutional Constitutional: fatigue, weakness (lower extremity. getting better after surgery), no chills, no fever(s) - Cardiovascular Cardiovascular ROS IM: dyspnea (baseline), edema, no chest pain, no lightheadedness, no syncope - Respiratory Respiratory: cough, dyspnea, no wheezing, no chest congestion - Gastrointestinal Gastrointestinal: no abdominal pain, no diarrhea, no hematochezia, no loose stools, no melena, no nausea, no vomiting - Genitourinary Genitourinary ROS male: urinary frequency, urinary incontinence (hard to get there in time), no dysuria, no hematuria - Musculoskeletal Musculoskeletal ROS IM: back pain, limited range of motion, muscle weakness - Integumentary Integumentary IM: skin ulcer, no rash - Neurological Neurological ROS: focal weakness (legs improved after surgery) - Psychiatric Psychiatric: depression - Endocrine Endocrine IM: fatigue - Constitutional Vitals: Temp Pulse Resp BP Pulse Ox 98.1 F 83 19 126/60 94 08/30/17 06:56 08/30/17 07:44 08/30/17 06:56 08/30/17 06:56 08/30/17 06:56 General appearance: Present: pleasant, obese, answers questions appropriately. Absent: no acute distress - Head Head exam: Present: atraumatic, normocephalic - Neck Neck exam general surgery: Present: supple, trachea midline. Absent: lymphadenopathy - Expanded Neck Exam Neck exam: Absent: carotid bruit - Respiratory Respiratory exam: Present: decreased breath sounds, CTAB, prolonged expiratory phase - Cardiovascular Cardiovascular exam: Present: RRR, +S1, +S2. Absent: systolic murmur - GI/Abdominal GI/Abdominal exam: Present: normal bowel sounds, soft, no peritoneal signs. Absent: guarding, tenderness - Extremities Exam Extremities exam: Present: pedal edema (pale ) - Incison Incision: Present: clean and dry, intact, approximated - Skin Skin exam: Present: dry, warm Internal Med - H&P Results - Labs CBC & Chem 7: 08/30/17 06:05 08/30/17 06:05 Labs: Short CBC 08/30/17 Range/Units 06:05 WBC 12.5 H (4.3-11.1) K/mcL Hgb 7.8 L (12.9-16.9) g/dL Hct 24.8 L (37.5-50.1) % Plt Count 286 (140-400) K/mcL Neutrophils # 9.7 H (1.6-8.9) K/mcL BMP 08/30/17 06:05 Sodium 136 Potassium 3.1 L Chloride 97 L Carbon Dioxide 30 H BUN 21 Creatinine 0.88 Glucose 141 H Calcium 8.9 Urine 08/30/17 Range/Units 00:00 Urine Color Yellow (Yellow) Urine Clarity Slightly Cloudy A (Clear) Urine pH 6.0 (5.0-8.0) pH Units Ur Specific [place] 1.015 (1.010-1.025) Urine Protein 30 H (Neg-Trace) mg/dL Urine Glucose (UA) Normal (Normal) mg/dL
[2017-08-30] MEDS: levoFLOXacin 500 MG TABLET PO SCH (14:45)
[2017-08-30] MEDS: Insulin DETEMIR 100 UNIT/ML X5UNITS SQ SCH (21:58)
[2017-08-31 06:36] LABS: Basophils % 0.1 %; Eosinophils # 0.1 K/mcL (0.0-0.6); Eosinophils % 1.4 %; Hematocrit 23.2 % (37.5-50.1); Hemoglobin 7.3 g/dL (12.9-16.9); Immature Granulocytes % 0.4 % (0-4); Lymphocytes # 1.4 K/mcL (0.6-4.6); Lymphocytes % 13.6 %; Mean Corpuscular HGB Conc 31.5 g/dL (31.6-35.5); Mean Corpuscular Volume 92.1 fL (83.0-100.0); Mean Platelet Volume 9.5 fL (9.4-12.4); Monocytes # 0.8 K/mcL (0.0-1.3); Monocytes % 8.2 %; Neutrophils # 7.8 K/mcL (1.6-8.9); Platelet Count 323 K/mcL (140-400); Red Blood Count 2.52 M/mcL (4.19-5.50); Red Cell Distribution Width 16.4 % (11.5-14.5); Segmented Neutrophils % 76.3 %
[2017-08-31 06:54] LABS: BUN/Creatinine Ratio 26 (6-26); Blood Urea Nitrogen 28 mg/dL (8-23); Carbon Dioxide 35 mEq/L (23-29); Chloride 101 mEq/L (98-107); Glucose 105 mg/dL (70-105); Osmolality,Calculated 296 (280-300); Potassium 3.4 mEq/L (3.5-5.1); Sodium 140 mEq/L (136-145); eGFR For African Americans > 60 (> 60); eGFR For Non-African Americans > 60 (> 60)
[2017-08-31] MEDS: Tiotropium 18 MCG inhalation IH SCH (08:48)
[2017-08-31] MEDS: Budesonide/Formoterol 80/4.5 MDI IH SCH ×2 (08:48→20:16)
[2017-08-31] MEDS: Zinc Sulfate 220 MG CAPSULE PO SCH ×2 (08:49→20:17)
[2017-08-31] MEDS: Valsartan 160 MG TABLET PO SCH (08:49)
[2017-08-31] MEDS: Diltiazem CD (24hr) 180 MG CAPSULE PO SCH (08:49)
[2017-08-31] MEDS: hydroCHLOROthiazide 25 MG TABLET PO SCH (08:49)
[2017-08-31] MEDS: Sennosides/Docusate Sodium TABLET PO SCH ×2 (08:49→20:17)
[2017-08-31] MEDS: *HR* Metformin 500 MG TABLET PO SCH ×2 (08:49→16:04)
[2017-08-31] MEDS: levoFLOXacin 500 MG TABLET PO SCH (08:49)
[2017-08-31] MEDS: Ascorbic Acid 500 MG TABLET PO SCH (08:50)
[2017-08-31] MEDS: predniSONE 10 MG TABLET PO SCH (08:50)
[2017-08-31] MEDS: Gabapentin 300 MG CAPSULE PO SCH ×3 (08:50→20:17)
[2017-08-31] MEDS: Insulin LISPRO 300 UNITS/3 ML VIAL SQ SCH ×4 (09:42→20:14)
[2017-08-31] MEDS: *HR* OxyCODONE Immed Rel 5 MG TABLET PO PRN ×2 (14:27→20:17)
[2017-08-31] MEDS: Insulin DETEMIR 100 UNIT/ML X5UNITS SQ SCH (20:16)
[2017-09-01 04:38] LABS: Basophils % 0.2 %; Eosinophils # 0.2 K/mcL (0.0-0.6); Eosinophils % 1.3 %; Hemoglobin 7.4 g/dL (12.9-16.9); Immature Granulocytes % 0.6 % (0-4); Lymphocytes # 2.1 K/mcL (0.6-4.6); Lymphocytes % 17.7 %; Mean Corpuscular HGB Conc 30.8 g/dL (31.6-35.5); Mean Corpuscular Hemoglobin 28.2 pg (28.0-33.3); Mean Corpuscular Volume 91.6 fL (83.0-100.0); Mean Platelet Volume 9.3 fL (9.4-12.4); Monocytes # 0.9 K/mcL (0.0-1.3); Monocytes % 7.6 %; Neutrophils # 8.4 K/mcL (1.6-8.9); Platelet Count 366 K/mcL (140-400); Red Blood Count 2.62 M/mcL (4.19-5.50); Red Cell Distribution Width 15.9 % (11.5-14.5); Segmented Neutrophils % 72.6 %
[2017-09-01 04:56] LABS: BUN/Creatinine Ratio 35 (6-26); Blood Urea Nitrogen 29 mg/dL (8-23); Carbon Dioxide 32 mEq/L (23-29); Chloride 101 mEq/L (98-107); Glucose 100 mg/dL (70-105); Osmolality,Calculated 294 (280-300); Potassium 3.5 mEq/L (3.5-5.1); Sodium 139 mEq/L (136-145); eGFR For African Americans > 60 (> 60); eGFR For Non-African Americans > 60 (> 60)
[2017-09-01] MEDS: Tiotropium 18 MCG inhalation IH SCH (08:26)
[2017-09-01] MEDS: Budesonide/Formoterol 80/4.5 MDI IH SCH ×2 (08:26→20:50)
--- NOTE | 2017-09-01 08:30 | Internal Med Progress Note ---
Date of Encounter: 09/01/17 Time of Encounter: 08:29 - Assessment and plan (1) Physical deconditioning Current Visit: Yes Status: Acute Assessment and plan: here for pt/ot. he has lower ext weakness that is better since the lumbar surg , but he still is very weak and requires more pt. he is not safe at home. he has had 4 falls since the cervical surg. he has 4/5 weakness of legs since the lumbar surge was 3/5 prior so he is improving (2) Vitamin D deficiency Current Visit: Yes Status: Acute Assessment and plan: home medication (3) Hyperlipidemia Current Visit: Yes Status: Acute Assessment and plan: home medication Qualifiers: Hyperlipidemia type: mixed hyperlipidemia Qualified Code(s): E78.2 - Mixed hyperlipidemia (4) Obstructive sleep apnea Current Visit: Yes Status: Acute Assessment and plan: has cpap at home (5) Hypertension Current Visit: Yes Status: Acute Assessment and plan: stable on home medication Qualifiers: Hypertension type: essential hypertension Qualified Code(s): I10 - Essential (primary) hypertension (6) Sacral decubitus ulcer, stage III Current Visit: Yes Status: Acute Assessment and plan: wound care it has improved (7) DM2 (diabetes mellitus, type 2) Current Visit: Yes Status: Acute Assessment and plan: now on levemir to control sugars, check accuchecks Qualifiers: Diabetes mellitus stonemason apprentice insulin use: with stonemason apprentice use Diabetes mellitus complication status: without complication Qualified Code(s): E11.9 - Type 2 diabetes mellitus without complications; Z79.4 - nursing home (current) use of insulin (8) Anemia Current Visit: Yes Status: Acute Assessment and plan: hg and been going down slowly. he does not feel he needs a transfusion yet. will continue po iron Qualifiers: Anemia type: iron deficiency Iron deficiency anemia type: chronic blood loss Qualified Code(s): D50.0 - Iron deficiency anemia secondary to blood loss (chronic) (9) DVT (deep venous thrombosis) Current Visit: Yes Status: Acute Assessment and plan: has ivc filter. has large gi bleed on eliquis Qualifiers: DVT location: lower extremity Affected thrombotic vein of extremity: femoral Chronicity: acute Laterality: left Qualified Code(s): I82.412 - Acute embolism and thrombosis of left femoral vein (10) S/P IVC filter Current Visit: Yes Status: Chronic (11) GI bleed Current Visit: Yes Status: Acute Assessment and plan: from gastritis after prednisone and on eliquis, hg stable yesterday to today. cont ppi Qualifiers: GI bleed type/associated pathology: gastritis Gastritis type: chronic gastritis Qualified Code(s): K29.51 - Unspecified chronic gastritis with bleeding (12) COPD (chronic obstructive pulmonary disease) Current Visit: Yes Status: Acute Assessment and plan: stable on home medication, he does not tolerate weaning the prednisone past 10mg a day Qualifiers: COPD type: unspecified COPD Qualified Code(s): J44.9 - Chronic obstructive pulmonary disease, unspecified (13) DVT prophylaxis Current Visit: Yes Status: Acute Assessment and plan: ambulation and kirti hose in place (14) History of depression Current Visit: Yes Status: Chronic Assessment and plan: cont the sertraline. he is tired of not being home (15) UTI (urinary tract infection) Current Visit: Yes Status: Acute Assessment and plan: on levaquin sensitive to this Qualifiers: Urinary tract infection type: acute cystitis Hematuria presence: with hematuria Qualified Code(s): N30.01 - Acute cystitis with hematuria - Subjective Interval history: his legs are getting stronger but still weak. pain acceptable. no dizzy, sob baseline did ok getting dressed this am. no n/v, bowels ok, still hard to get to the restroom in time for urination. therapy wore him out yesterday. no cp, ulcer is improving. his hg is 7.4 today. - Constitutional Vitals: Temp Pulse Resp BP Pulse Ox 97.5 F L 85 16 155/55 97 09/01/17 07:23 09/01/17 07:23 09/01/17 07:23 09/01/17 07:23 09/01/17 07:23 General appearance: Present: A&O X 3, pleasant, obese, answers questions appropriately. Absent: no acute distress - Head Head exam: Present: atraumatic, normocephalic - Neck Neck exam general surgery: Present: supple, trachea midline. Absent: full ROM, tenderness - Respiratory Respiratory exam: Present: decreased breath sounds, CTAB, prolonged expiratory phase - Cardiovascular Cardiovascular exam: Present: RRR, +S1, +S2. Absent: systolic murmur - GI/Abdominal GI/Abdominal exam: Present: normal bowel sounds, soft, no peritoneal signs. Absent: guarding, rebound, tenderness - Extremities Exam Extremities exam: Present: pedal edema. Absent: full ROM (4/5 strength quad and lower ext) - Incison Incision: Present: clean and dry, intact - Skin Skin exam: Present: dry, warm Internal Medicine: Result - Labs CBC & Chem 7: 09/01/17 04:33 09/01/17 04:33 Labs: Short CBC 09/01/17 Range/Units 04:33 WBC 11.6 H (4.3-11.1) K/mcL Hgb 7.4 L (12.9-16.9) g/dL Hct 24.0 L (37.5-50.1) % Plt Count 366 (140-400) K/mcL Neutrophils # 8.4 (1.6-8.9) K/mcL BMP 09/01/17 04:33 Sodium 139 Potassium 3.5 Chloride 101 Carbon Dioxide 32 H BUN 29 H Creatinine 0.84 Glucose 100 Calcium 9.0 - ABG Interpretation ABG results: PT/INR, D-dimer PT 11.5 Seconds (9.4-12.1) 08/30/17 06:05 - VTE Documentation of Mechanical Device: Graduated compression elastic hosiery Consult Discharge Plan - Plan Referrals: Padmini Bonner MD [Primary Care Provider] -
[2017-09-01] MEDS: Valsartan 160 MG TABLET PO SCH (08:38)
[2017-09-01] MEDS: Diltiazem CD (24hr) 180 MG CAPSULE PO SCH (08:38)
[2017-09-01] MEDS: Zinc Sulfate 220 MG CAPSULE PO SCH ×2 (08:39→20:50)
[2017-09-01] MEDS: Gabapentin 300 MG CAPSULE PO SCH ×3 (08:39→20:50)
[2017-09-01] MEDS: hydroCHLOROthiazide 25 MG TABLET PO SCH (08:39)
[2017-09-01] MEDS: levoFLOXacin 500 MG TABLET PO SCH (08:39)
[2017-09-01] MEDS: Sennosides/Docusate Sodium TABLET PO SCH ×2 (08:39→20:50)
[2017-09-01] MEDS: *HR* Metformin 500 MG TABLET PO SCH ×2 (08:39→16:38)
[2017-09-01] MEDS: Ascorbic Acid 500 MG TABLET PO SCH (08:40)
[2017-09-01] MEDS: Insulin DETEMIR 100 UNIT/ML X5UNITS SQ SCH (08:40)
[2017-09-01] MEDS: predniSONE 10 MG TABLET PO SCH (08:40)
[2017-09-01] MEDS: Insulin LISPRO 300 UNITS/3 ML VIAL SQ SCH ×4 (09:36→20:51)
[2017-09-01] MEDS: Ipratropium/Albuterol Neb 3 ML IH PRN (09:38)
[2017-09-01] MEDS: *HR* OxyCODONE Immed Rel 5 MG TABLET PO PRN ×2 (12:48→20:50)
--- NOTE | 2017-09-01 14:03 | Internal Med Progress Note ---
Date of Encounter: 09/01/17 Time of Encounter: 08:20 - Assessment and plan (1) Physical deconditioning Current Visit: Yes Status: Acute Assessment and plan: here for pt/ot. he has lower ext weakness that is better since the lumbar surg , but he still is very weak and requires more pt. (2) Vitamin D deficiency Current Visit: Yes Status: Acute Assessment and plan: home medication (3) Hyperlipidemia Current Visit: Yes Status: Acute Assessment and plan: home medication Qualifiers: Hyperlipidemia type: mixed hyperlipidemia Qualified Code(s): E78.2 - Mixed hyperlipidemia (4) Obstructive sleep apnea Current Visit: Yes Status: Acute Assessment and plan: has cpap at home (5) Hypertension Current Visit: Yes Status: Acute Assessment and plan: stable on home medication Qualifiers: Hypertension type: essential hypertension Qualified Code(s): I10 - Essential (primary) hypertension (6) Sacral decubitus ulcer, stage III Current Visit: Yes Status: Acute Assessment and plan: wound care it has improved (7) DM2 (diabetes mellitus, type 2) Current Visit: Yes Status: Acute Assessment and plan: now on levemir to control sugars Qualifiers: Diabetes mellitus senior living insulin use: with pharmacognosy teacher use Diabetes mellitus complication status: without complication Qualified Code(s): E11.9 - Type 2 diabetes mellitus without complications; Z79.4 - long term acute care registered nurse (current) use of insulin (8) Anemia Current Visit: Yes Status: Acute Assessment and plan: hg and been going down slowly. he does not feel he needs a transfusion yet. will continue po iron Qualifiers: Anemia type: iron deficiency Iron deficiency anemia type: chronic blood loss Qualified Code(s): D50.0 - Iron deficiency anemia secondary to blood loss (chronic) (9) DVT (deep venous thrombosis) Current Visit: Yes Status: Acute Assessment and plan: has ivc filter. has large gi bleed on eliquis Qualifiers: DVT location: lower extremity Affected thrombotic vein of extremity: femoral Chronicity: acute Laterality: left Qualified Code(s): I82.412 - Acute embolism and thrombosis of left femoral vein (10) S/P IVC filter Current Visit: Yes Status: Chronic Assessment and plan: due to unable to tolerate anticoagulation (11) GI bleed Current Visit: Yes Status: Acute Qualifiers: GI bleed type/associated pathology: gastritis Gastritis type: chronic gastritis Qualified Code(s): K29.51 - Unspecified chronic gastritis with bleeding (12) COPD (chronic obstructive pulmonary disease) Current Visit: Yes Status: Acute Assessment and plan: stable on home medication Qualifiers: COPD type: unspecified COPD Qualified Code(s): J44.9 - Chronic obstructive pulmonary disease, unspecified (13) DVT prophylaxis Current Visit: Yes Status: Acute Assessment and plan: ambulation (14) History of depression Current Visit: Yes Status: Chronic (15) UTI (urinary tract infection) Current Visit: Yes Status: Acute Assessment and plan: on levaquin sensitivites pending Qualifiers: Urinary tract infection type: acute cystitis Hematuria presence: with hematuria Qualified Code(s): N30.01 - Acute cystitis with hematuria (16) S/P PICC central line placement Current Visit: Yes Status: Acute Assessment and plan: will need to get this out as soon as possible will keep for now as he is looking at another possible transfusion in the next day or so with hg 7.3. - Subjective Interval history: this is a note from 08/31. the note has disappeared from [employer]. 08/30/17 he had an assisted fall getting to the bathroom. the tech lowered him to floor. he was walking, turned and his legs went out. he did not get hurt no bruise no pain. no dizzy, no cp, no sob, no n/v bowels ok. hard to get to the restroom in time for urination. no fever. he is getting frustrated with his progress. this is his fourth fall since surgery in june. he legs are still weak but improving since the surgery lumbar last week - Constitutional Vitals: Temp Pulse Resp BP Pulse Ox 97.5 F L 85 16 155/55 97 09/01/17 07:23 09/01/17 07:23 09/01/17 07:23 09/01/17 07:23 09/01/17 10:00 General appearance: Present: A&O X 3, pleasant, obese, answers questions appropriately. Absent: no acute distress - Head Head exam: Present: atraumatic, normocephalic - Neck Neck exam general surgery: Present: normal inspection, tenderness, trachea midline. Absent: full ROM - Respiratory Respiratory exam: Present: decreased breath sounds, prolonged expiratory phase - Cardiovascular Cardiovascular exam: Present: RRR. Absent: +S1, +S2 - GI/Abdominal GI/Abdominal exam: Present: distended, normal bowel sounds, soft, no peritoneal signs. Absent: guarding - Extremities Exam Extremities exam: Present: pedal edema. Absent: mottling - Incison Incision: Present: clean and dry, intact. Absent: erythema - Skin Skin exam: Present: dry, warm Internal Medicine: Result - Labs CBC & Chem 7: 09/01/17 04:33 09/01/17 04:33 Labs: Short CBC 09/01/17 Range/Units 04:33 WBC 11.6 H (4.3-11.1) K/mcL Hgb 7.4 L (12.9-16.9) g/dL Hct 24.0 L (37.5-50.1) % Plt Count 366 (140-400) K/mcL Neutrophils # 8.4 (1.6-8.9) K/mcL BMP 09/01/17 04:33 Sodium 139 Potassium 3.5 Chloride 101 Carbon Dioxide 32 H BUN 29 H Creatinine 0.84 Glucose 100 Calcium 9.0 - ABG Interpretation ABG results: PT/INR, D-dimer PT 11.5 Seconds (9.4-12.1) 08/30/17 06:05 - VTE Documentation of Mechanical Device: Graduated compression elastic hosiery Consult Discharge Plan - Plan Referrals: Padmini Bonner MD [Primary Care Provider] -
[2017-09-01] MEDS ORDERED: Mag Hydrox/Al Hydrox/Simeth 30 ML UDC PO PRN (18:44)
[2017-09-02 06:40] LABS: Basophils % 0.1 %; Eosinophils # 0.1 K/mcL (0.0-0.6); Eosinophils % 1.3 %; Hematocrit 23.9 % (37.5-50.1); Hemoglobin 7.4 g/dL (12.9-16.9); Immature Granulocytes % 0.9 % (0-4); Lymphocytes # 1.8 K/mcL (0.6-4.6); Lymphocytes % 16.6 %; Mean Corpuscular Hemoglobin 28.2 pg (28.0-33.3); Mean Corpuscular Volume 91.2 fL (83.0-100.0); Mean Platelet Volume 9.5 fL (9.4-12.4); Monocytes # 0.8 K/mcL (0.0-1.3); Monocytes % 7.5 %; Neutrophils # 7.9 K/mcL (1.6-8.9); Platelet Count 419 K/mcL (140-400); Red Blood Count 2.62 M/mcL (4.19-5.50); Red Cell Distribution Width 16.1 % (11.5-14.5); Segmented Neutrophils % 73.6 %
[2017-09-02 06:55] LABS: BUN/Creatinine Ratio 36 (6-26); Blood Urea Nitrogen 26 mg/dL (8-23); Calcium 9.1 mg/dL (8.6-10.3); Carbon Dioxide 34 mEq/L (23-29); Chloride 101 mEq/L (98-107); Glucose 117 mg/dL (70-105); Osmolality,Calculated 298 (280-300); Potassium 3.6 mEq/L (3.5-5.1); Sodium 141 mEq/L (136-145); eGFR For African Americans > 60 (> 60); eGFR For Non-African Americans > 60 (> 60)
[2017-09-02] MEDS: Ascorbic Acid 500 MG TABLET PO SCH (07:51)
[2017-09-02] MEDS: Gabapentin 300 MG CAPSULE PO SCH ×3 (07:51→20:16)
[2017-09-02] MEDS: Sennosides/Docusate Sodium TABLET PO SCH ×2 (07:51→20:16)
[2017-09-02] MEDS: levoFLOXacin 500 MG TABLET PO SCH (07:51)
[2017-09-02] MEDS: Valsartan 160 MG TABLET PO SCH (07:51)
[2017-09-02] MEDS: predniSONE 10 MG TABLET PO SCH (07:51)
[2017-09-02] MEDS: Insulin LISPRO 300 UNITS/3 ML VIAL SQ SCH ×4 (07:51→20:14)
[2017-09-02] MEDS: Diltiazem CD (24hr) 180 MG CAPSULE PO SCH (07:52)
[2017-09-02] MEDS: *HR* Metformin 500 MG TABLET PO SCH ×2 (07:52→16:39)
[2017-09-02] MEDS: hydroCHLOROthiazide 25 MG TABLET PO SCH (07:52)
[2017-09-02] MEDS: Budesonide/Formoterol 80/4.5 MDI IH SCH ×2 (07:52→20:15)
[2017-09-02] MEDS: Zinc Sulfate 220 MG CAPSULE PO SCH ×2 (07:52→20:15)
[2017-09-02] MEDS: Tiotropium 18 MCG inhalation IH SCH (07:52)
[2017-09-02] MEDS: *HR* OxyCODONE Immed Rel 5 MG TABLET PO PRN (12:15)
--- NOTE | 2017-09-02 14:45 | Internal Med Progress Note ---
Date of Encounter: 09/02/17 Time of Encounter: 14:40 - Assessment and plan (1) Physical deconditioning Current Visit: Yes Status: Acute Assessment and plan: Continues with his physical therapy for his physical deconditioning following his cervical spine surgery, lumbar spine surgery and multiple medical problems. He has a very positive attitude and he seems to be improving in his ability to ambulate. He still has a long way to go. No acute symptoms. Pain is under adequate control. (2) Hypertension Current Visit: Yes Status: Acute Assessment and plan: Hypertension is under good control stay in the same medication. Electrolytes and renal function are normal. Qualifiers: Hypertension type: essential hypertension Qualified Code(s): I10 - Essential (primary) hypertension (3) Skin tear Current Visit: Yes Status: Acute Assessment and plan: His multiple skin tears on both arms covered with sterile dressing. They seem to be doing well from what I can tell. (4) Sacral decubitus ulcer, stage III Current Visit: Yes Status: Acute Assessment and plan: Resolving sacral decubitus. Nurse reports that it is the size of a pencil eraser and not very deep. Only taking about a centimeter or less of packing. I will evaluate this during a dressing change in the future. (5) DM2 (diabetes mellitus, type 2) Current Visit: Yes Status: Acute Assessment and plan: We continue to monitor her sugars. They are under reasonable control. Continue current medication. Overall control glycohemoglobin 6.8% tested in June. Qualifiers: Diabetes mellitus penitentiary insulin use: with intermediate manager use Diabetes mellitus complication status: without complication Qualified Code(s): E11.9 - Type 2 diabetes mellitus without complications; Z79.4 - snf (current) use of insulin (6) Anemia Current Visit: Yes Status: Acute Assessment and plan: His hemoglobin has improved since admission and stable at 7.4gm. No black or tarry stools. No blood per rectum. We will recheck in a few days. Qualifiers: Anemia type: iron deficiency Iron deficiency anemia type: chronic blood loss Qualified Code(s): D50.0 - Iron deficiency anemia secondary to blood loss (chronic) (7) S/P IVC filter Current Visit: Yes Status: Chronic Assessment and plan: Has IVC filter from previous history of DVT and was anticoagulated then developed a significant GI bleed. No complications noted. (8) GI bleed Current Visit: Yes Status: Acute Assessment and plan: Previous GI bleed and was on anticoagulation for DVT. Currently on chronic prednisone for his lungs. He is on a PPI. No recent history of melena or hematochezia. No abdominal pain. Qualifiers: GI bleed type/associated pathology: gastritis Gastritis type: chronic gastritis Qualified Code(s): K29.51 - Unspecified chronic gastritis with bleeding (9) COPD (chronic obstructive pulmonary disease) Current Visit: Yes Status: Acute Assessment and plan: Poor air exchange and requiring oxygen. Continue current treatment. No respiratory distress. Qualifiers: COPD type: unspecified COPD Qualified Code(s): J44.9 - Chronic obstructive pulmonary disease, unspecified (10) Hypokalemia Current Visit: Yes Status: Resolved Assessment and plan: Hypokalemia is now resolved. (11) DVT prophylaxis Current Visit: Yes Status: Acute Assessment and plan: Patient is not anticoagulated. He has an IVC filter because he had previous significant GI bleed and has chronic anemia. Elastic stockings and ambulation ordered. (12) History of depression Current Visit: Yes Status: Chronic Assessment and plan: Continues with his antidepressant. He seems be appropriate good spirits despite his medical problems. (13) Lower extremity edema Current Visit: Yes Status: Acute Assessment and plan: Rather severe low extremity edema including the feet bilaterally. Likely related to his anemia, deconditioning, chronic prednisone use and history of recent IV fluids. Not particularly tender. No redness. He is awaiting his to bring his black elastic stockings this seemed to work better for him. (14) UTI (urinary tract infection) Current Visit: Yes Status: Acute Assessment and plan: History of urinary tract infection caused by Pseudomonas. It is sensitive to Levaquin. No fever. No escalation of his urinary symptoms. Qualifiers: Urinary tract infection type: acute cystitis Hematuria presence: with hematuria Qualified Code(s): N30.01 - Acute cystitis with hematuria - Subjective Interval history: Patient is having no acute symptoms of chest pain, dyspnea, GI or symptoms. He states he finally had a bowel movement after some warm prune juice. He continues to have a bit of burning when he urinates and frequency but it sounds chronic. He states his pain is under reasonably good control. It was a "5" after therapy. He is happy with the pain management. He thinks his lower extremities are getting stronger. He has been exercising well in this chair. He can extend at the knees almost completely and he can raise his thighs off the chair. He has been doing some ambulation down the hallway or toward the lunchroom, but needs someone behind him with a wheelchair when he fatigues. - Constitutional Vitals: Temp Pulse Resp BP Pulse Ox 97.5 F L 62 14 127/68 91 09/02/17 07:28 09/02/17 07:28 09/02/17 07:28 09/02/17 07:28 09/02/17 07:28 General appearance: Present: A&O X 3, pleasant, obese, answers questions appropriately. Absent: no acute distress - Respiratory Respiratory exam: Present: decreased breath sounds Additional comments: Markedly diminished breath sounds throughout. Slight end expiratory wheezes heard anteriorly. No respiratory distress - Cardiovascular Cardiovascular exam: Present: distant heart sounds, RRR, +S1, +S2 - Extremities Exam Additional comments: Markedly edematous lower extremities and very pale. No tenderness. He is waiting for his to bring his black elastic stockings which he states he can tolerate and worked better than the ones the hospital stock. No pain in lower extremities. - Neurological Exam Additional comments: In seated position he can raise both lower extremities to almost full extension at about 4 out of 5 bilaterally. He can raise both thighs off the chair. Internal Medicine: Result - Labs CBC & Chem 7: 09/02/17 06:10 09/02/17 06:10 Labs: Short CBC 09/02/17 Range/Units 06:10 WBC 10.7 (4.3-11.1) K/mcL Hgb 7.4 L (12.9-16.9) g/dL Hct 23.9 L (37.5-50.1) % Plt Count 419 H (140-400) K/mcL Neutrophils # 7.9 (1.6-8.9) K/mcL BMP 09/02/17 06:10 Sodium 141 Potassium 3.6 Chloride 101 Carbon Dioxide 34 H BUN 26 H Creatinine 0.73 Glucose 117 H Calcium 9.1 Hemoglobin is stable. Urine culture grew Pseudomonas sensitive to the Levaquin. His potassium is now normal. - ABG Interpretation ABG results: PT/INR, D-dimer PT 11.5 Seconds (9.4-12.1) 08/30/17 06:05 - VTE Documentation of Mechanical Device: Graduated compression elastic hosiery Consult Discharge Plan - Plan Referrals: Padmini Bonner MD [Primary Care Provider] -
[2017-09-02] MEDS: Insulin DETEMIR 100 UNIT/ML X5UNITS SQ SCH (20:15)
[2017-09-03] MEDS: Ipratropium/Albuterol Neb 3 ML IH PRN ×2 (00:36→14:21)
[2017-09-03] MEDS: Insulin LISPRO 300 UNITS/3 ML VIAL SQ SCH ×4 (07:47→20:35)
[2017-09-03] MEDS: Valsartan 160 MG TABLET PO SCH (08:13)
[2017-09-03] MEDS: Gabapentin 300 MG CAPSULE PO SCH ×3 (08:13→20:34)
[2017-09-03] MEDS: predniSONE 10 MG TABLET PO SCH (08:13)
[2017-09-03] MEDS: hydroCHLOROthiazide 25 MG TABLET PO SCH (08:13)
[2017-09-03] MEDS: Diltiazem CD (24hr) 180 MG CAPSULE PO SCH (08:13)
[2017-09-03] MEDS: Zinc Sulfate 220 MG CAPSULE PO SCH ×2 (08:13→20:33)
[2017-09-03] MEDS: levoFLOXacin 500 MG TABLET PO SCH (08:13)
[2017-09-03] MEDS: Sennosides/Docusate Sodium TABLET PO SCH ×2 (08:14→20:34)
[2017-09-03] MEDS: *HR* Metformin 500 MG TABLET PO SCH ×2 (08:14→17:02)
[2017-09-03] MEDS: Ascorbic Acid 500 MG TABLET PO SCH (08:14)
[2017-09-03] MEDS: Tiotropium 18 MCG inhalation IH SCH (08:17)
[2017-09-03] MEDS: Budesonide/Formoterol 80/4.5 MDI IH SCH ×2 (08:17→20:36)
[2017-09-03] MEDS: *HR* OxyCODONE Immed Rel 5 MG TABLET PO PRN (13:25)
[2017-09-03] MEDS: Insulin DETEMIR 100 UNIT/ML X5UNITS SQ SCH (20:35)
[2017-09-04] MEDS: Insulin LISPRO 300 UNITS/3 ML VIAL SQ SCH ×4 (07:31→20:49)
[2017-09-04] MEDS: Tiotropium 18 MCG inhalation IH SCH (08:16)
[2017-09-04] MEDS: Zinc Sulfate 220 MG CAPSULE PO SCH ×2 (08:17→20:50)
[2017-09-04] MEDS: Budesonide/Formoterol 80/4.5 MDI IH SCH ×2 (08:17→20:50)
[2017-09-04] MEDS: Valsartan 160 MG TABLET PO SCH (08:17)
[2017-09-04] MEDS: Sennosides/Docusate Sodium TABLET PO SCH ×2 (08:18→20:50)
[2017-09-04] MEDS: predniSONE 10 MG TABLET PO SCH (08:18)
[2017-09-04] MEDS: Ascorbic Acid 500 MG TABLET PO SCH (08:18)
[2017-09-04] MEDS: hydroCHLOROthiazide 25 MG TABLET PO SCH (08:18)
[2017-09-04] MEDS: Diltiazem CD (24hr) 180 MG CAPSULE PO SCH (08:18)
[2017-09-04] MEDS: levoFLOXacin 500 MG TABLET PO SCH (08:18)
[2017-09-04] MEDS: Gabapentin 300 MG CAPSULE PO SCH ×3 (08:18→20:50)
[2017-09-04] MEDS: *HR* OxyCODONE Immed Rel 5 MG TABLET PO PRN ×2 (08:18→15:52)
[2017-09-04] MEDS: *HR* Metformin 500 MG TABLET PO SCH ×2 (08:18→16:46)
[2017-09-04] MEDS: Insulin DETEMIR 100 UNIT/ML X5UNITS SQ SCH (20:50)
[2017-09-05] MEDS: Ipratropium/Albuterol Neb 3 ML IH PRN ×4 (01:37→23:02)
[2017-09-05] MEDS: predniSONE 10 MG TABLET PO SCH (08:06)
[2017-09-05] MEDS: Sennosides/Docusate Sodium TABLET PO SCH ×2 (08:06→21:33)
[2017-09-05] MEDS: *HR* Metformin 500 MG TABLET PO SCH ×2 (08:06→16:53)
[2017-09-05] MEDS: Diltiazem CD (24hr) 180 MG CAPSULE PO SCH (08:07)
[2017-09-05] MEDS: Valsartan 160 MG TABLET PO SCH (08:07)
[2017-09-05] MEDS: Zinc Sulfate 220 MG CAPSULE PO SCH ×2 (08:07→21:33)
[2017-09-05] MEDS: hydroCHLOROthiazide 25 MG TABLET PO SCH (08:07)
[2017-09-05] MEDS: Insulin LISPRO 300 UNITS/3 ML VIAL SQ SCH ×4 (08:07→21:29)
[2017-09-05] MEDS: Gabapentin 300 MG CAPSULE PO SCH ×3 (08:07→21:33)
[2017-09-05] MEDS: Ascorbic Acid 500 MG TABLET PO SCH (08:07)
[2017-09-05] MEDS: Budesonide/Formoterol 80/4.5 MDI IH SCH ×2 (08:39→21:32)
[2017-09-05] MEDS: Tiotropium 18 MCG inhalation IH SCH (08:40)
[2017-09-05] MEDS: *HR* OxyCODONE Immed Rel 5 MG TABLET PO PRN ×2 (11:04→21:33)
--- NOTE | 2017-09-05 20:06 | Internal Med Progress Note ---
Date of Encounter: 09/05/17 Time of Encounter: 19:56 - Assessment and plan (1) Physical deconditioning Current Visit: Yes Status: Acute Assessment and plan: He continues with his therapies and is getting stronger. He is able to ambulate short distances with a walker but fatigues easily. He did well with his trial at home and plan for discharge is for tomorrow. (2) Hypertension Current Visit: Yes Status: Acute Assessment and plan: Blood pressure is under appropriate control. Continue same medication. Qualifiers: Hypertension type: essential hypertension Qualified Code(s): I10 - Essential (primary) hypertension (3) Skin tear Current Visit: Yes Status: Acute Assessment and plan: Multiple skin tears particularly on his arms and forearms covered with sterile dressings. He states they are healing well. (4) Sacral decubitus ulcer, stage III Current Visit: Yes Status: Acute Assessment and plan: Continuing with dressing changes and packing of the sacral decubitus. I did not evaluate today but will do so tomorrow. (5) DM2 (diabetes mellitus, type 2) Current Visit: Yes Status: Acute Assessment and plan: His sugars occasionally are elevated. Overall his glycohemoglobin is 6.8%. He chronically takes low-dose prednisone which raises his blood sugar. We will continue to monitor as an outpatient as well. Qualifiers: Diabetes mellitus extermination supervisor insulin use: with extermination supervisor use Diabetes mellitus complication status: without complication Qualified Code(s): E11.9 - Type 2 diabetes mellitus without complications; Z79.4 - [facility] (current) use of insulin (6) Anemia Current Visit: Yes Status: Acute Assessment and plan: His anemia has been stable at 7.4%. He has had no melena or hematochezia. No abdominal pain. I do not feel we need to recheck hemoglobin today. Qualifiers: Anemia type: iron deficiency Iron deficiency anemia type: chronic blood loss Qualified Code(s): D50.0 - Iron deficiency anemia secondary to blood loss (chronic) (7) S/P IVC filter Current Visit: Yes Status: Chronic (8) GI bleed Current Visit: Yes Status: Acute Assessment and plan: No melena or hematochezia. No abdominal pain. Still is at risk because of prednisone use and is on a PPI. Qualifiers: GI bleed type/associated pathology: gastritis Gastritis type: chronic gastritis Qualified Code(s): K29.51 - Unspecified chronic gastritis with bleeding (9) COPD (chronic obstructive pulmonary disease) Current Visit: Yes Status: Acute Assessment and plan: Pulmonary status is stable. No recent exacerbation. Continue same medication. Qualifiers: COPD type: unspecified COPD Qualified Code(s): J44.9 - Chronic obstructive pulmonary disease, unspecified (10) Hypokalemia Current Visit: Yes Status: Resolved (11) DVT prophylaxis Current Visit: Yes Status: Acute (12) History of depression Current Visit: Yes Status: Chronic (13) Lower extremity edema Current Visit: Yes Status: Acute (14) UTI (urinary tract infection) Current Visit: Yes Status: Acute Assessment and plan: Currently on Levaquin for Pseudomonas UTI. He will finish 7 days today. Qualifiers: Urinary tract infection type: acute cystitis Hematuria presence: with hematuria Qualified Code(s): N30.01 - Acute cystitis with hematuria - Subjective Interval history: Patient feels that he is getting ready to go home tomorrow. Yesterday he had a trial visit at home and did well. He has no steps to get into his trailer. They will have to take the door off the bathroom to make it wheelchair accessible. He is able to use his walker throughout the house. He is able to walk a short distance with his walker in therapy and he feels this is long enough to manage at the trailer. He does fatigue and have to use the wheelchair frequently. He denies any cardiac type chest pain, dyspnea, palpitations, GI or symptoms. His pain is under appropriate control. He still swelling of the lower extremities and is using his compression stockings from home which he prefers. No skin breakdown noted. - Constitutional Vitals: Temp Pulse Resp BP Pulse Ox 98.0 F 85 18 136/60 95 09/05/17 19:17 09/05/17 19:17 09/05/17 19:17 09/05/17 19:17 09/05/17 19:17 General appearance: Present: A&O X 3, pleasant, obese, answers questions appropriately. Absent: no acute distress - Respiratory Respiratory exam: Present: decreased breath sounds Additional comments: Markedly diminished breath sounds but clear - Cardiovascular Cardiovascular exam: Present: RRR, +S1, +S2 - Extremities Exam Additional comments: Very swollen pale lower extremities. He has a black elastic stockings from home with indentation below the knee. No calf tenderness. - Incison Comments: Incision and midline lumbar area looks great. The glue adhesive is coming off. Tail end of the stitch is sticking out. No signs of infection. Internal Medicine: Result - Labs CBC & Chem 7: 09/02/17 06:10 09/02/17 06:10 - ABG Interpretation ABG results: PT/INR, D-dimer PT 11.5 Seconds (9.4-12.1) 08/30/17 06:05 - VTE Documentation of Mechanical Device: Graduated compression elastic hosiery Consult Discharge Plan - Plan Referrals: annmarie Mckee [Other] - 09/07/17 9:30 am annmarie mckee [Other] - 09/21/17 10:15 am Padmini Bonner MD [Primary Care Provider] -
[2017-09-05] MEDS: Insulin DETEMIR 100 UNIT/ML X5UNITS SQ SCH (21:30)
[2017-09-06 07:34] VITALS: BP 145/91
[2017-09-06] MEDS: Insulin LISPRO 300 UNITS/3 ML VIAL SQ SCH (07:50)
[2017-09-06] MEDS: Tiotropium 18 MCG inhalation IH SCH (07:57)
[2017-09-06] MEDS: Budesonide/Formoterol 80/4.5 MDI IH SCH (07:57)
[2017-09-06] MEDS: hydroCHLOROthiazide 25 MG TABLET PO SCH (08:01)
[2017-09-06] MEDS: Diltiazem CD (24hr) 180 MG CAPSULE PO SCH (08:01)
[2017-09-06] MEDS: predniSONE 10 MG TABLET PO SCH (08:02)
[2017-09-06] MEDS: Gabapentin 300 MG CAPSULE PO SCH (08:02)
[2017-09-06] MEDS: Ascorbic Acid 500 MG TABLET PO SCH (08:02)
[2017-09-06] MEDS: *HR* OxyCODONE Immed Rel 5 MG TABLET PO PRN (08:02)
[2017-09-06] MEDS: Zinc Sulfate 220 MG CAPSULE PO SCH (08:02)
[2017-09-06] MEDS: Valsartan 160 MG TABLET PO SCH (08:02)
[2017-09-06] MEDS: Sennosides/Docusate Sodium TABLET PO SCH (08:02)
[2017-09-06] MEDS: *HR* Metformin 500 MG TABLET PO SCH (08:02)
--- NOTE | 2017-09-06 08:24 | Discharge Summary ---
- NOTES TO OUTPATIENT PROVIDER Notes to Outpatient Provider: #1. Home health and PT/OT arranged. #2 Discharge hemoglobin 7.4 and stable for a few days. No melena or hematochezia or abdominal pain. Date of Encounter: 09/06/17 Time of Encounter: 08:19 - Discharge Diagnosis (1) Physical deconditioning Priority: Primary Status: Acute Comments: Patient has had a rather prolonged complicated medical course since June. This is the third time he was back to our rehabilitation center. He had cervical laminectomy and fusion. He then had an acute DVT after surgery and later developed hypotension and anemia secondary to GI bleed and had transfusions at EGD and colonoscopy. He now has an IVC filter. He had recent laminectomy of L2-L3 L4-L5 along with medial fasciectomy and foraminotomies on at [facility] as he had developed weakness of his lower extremities unable to walk while in our rehabilitation unit. He had a history of severe lumbar stenosis. He was readmitted to the rehabilitation unit for PT and OT. He is now able to ambulate short distances, enough to get through his home/ trailer. He tires easily and then requires his wheelchair. He had a trial visit at home 2 days ago and had done appropriately well. He will have home health as well as home PT and OT. (2) Hypertension Priority: Secondary Status: Acute Comments: Patient has long-standing history of hypertension. His pressures have been under adequate control. Recent renal function and electrolytes were tested and are normal. Qualifiers: Hypertension type: essential hypertension Qualified Code(s): I10 - Essential (primary) hypertension (3) Skin tear Priority: Secondary Status: Acute Comments: He has sustained multiple skin tears particular on his arms and forearms. Covered by sterile dressings. These be followed by home health as well. (4) Sacral decubitus ulcer, stage III Priority: Secondary Status: Acute Comments: Patient has sustained a sacral ulcer postoperatively. At one time it was stage IV. It is now the defect of 2 cm x 1 cm and is no more than a centimeter deep on best estimation. There is minimal drainage. There is no odor. No signs of secondary infection. The edges are sharp and dry. This is being packed and covered daily (5) DM2 (diabetes mellitus, type 2) Priority: Secondary Status: Acute Comments: Patient chronically has diabetes. His sugars were elevated with steroids. His overall glycohemoglobin is 6.8% though. His sugars have been under reasonable control recently. 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 He has had numerous blood transfusions. His last hemoglobin is 7.4 and stable for 3 days. He has had no melena or hematochezia or abdominal pain. He is currently taking iron Qualifiers: Anemia type: iron deficiency Iron deficiency anemia type: chronic blood loss Qualified Code(s): D50.0 - Iron deficiency anemia secondary to blood loss (chronic) (7) S/P IVC filter Priority: Secondary Status: Chronic Comments: Patient has IVC filter now having had significant GI bleed from gastric source while anticoagulated for an acute DVT postoperatively. (8) GI bleed Priority: Secondary Status: Acute Comments: Previous GI bleed as discussed above. No abdominal pain, melena, hematochezia. He is currently taking omeprazole 20 mg twice a day. Qualifiers: GI bleed type/associated pathology: gastritis Gastritis type: chronic gastritis Qualified Code(s): K29.51 - Unspecified chronic gastritis with bleeding (9) COPD (chronic obstructive pulmonary disease) Priority: Secondary Status: Acute Comments: Long-standing history of oxygen dependent COPD. He does well with his oxygen and saturations are good. He continues with his nebulizer treatments and his inhalers. He chronically takes present 10 mg daily. He has failed trial of taper of prednisone. He is very diminished breath sounds chronically. Qualifiers: COPD type: unspecified COPD Qualified Code(s): J44.9 - Chronic obstructive pulmonary disease, unspecified (10) Hypokalemia Priority: Secondary Status: Inactive (11) DVT prophylaxis Priority: Secondary Status: Inactive (12) History of depression Priority: Secondary Status: Chronic Comments: He has a chronic history of depression. Naturally , through this prolonged hospital course he has had some depressive episodes. They are not severe or suicidal. He takes sertraline 100 mg daily. (13) Lower extremity edema Priority: Secondary Status: Acute Comments: He chronically has lower extremity edema. With having his severe anemia is also retained fluid. He also sits many hours in the upright position with legs dependent. He has very swollen lower extremities. There is no skin breakdown or oozing. He will continue with his elastic stockings from home that he prefers. Elevation has been recommended. I think this will slowly resolve and would try to avoid aggressive diuresis in the meantime. (14) UTI (urinary tract infection) Priority: Secondary Status: Acute Comments: When he was readmitted to the hospital he had Pseudomonas UTI and has been on 8 days worth of Levaquin. This will be discontinued. He has no urinary symptoms. No fever. Qualifiers: Urinary tract infection type: acute cystitis Hematuria presence: with hematuria Qualified Code(s): N30.01 - Acute cystitis with hematuria Hospital course: Mr. Gary is a 71 year old male Discharge discussed with: patient - Time Spent with Patient Total time spent providing and/or coordinating discharge services: - Discharge Medications Prescriptions: Ascorbic Acid [Vitamin C] 500 mg PO DAILY #30 tablet Buspirone HCl [Buspar] 15 mg PO BID PRN #60 tablet PRN Reason: Anxiety Diltiazem CD (24hr) [Cardizem CD] 360 mg PO DAILY #30 cap.er.24h Ergocalciferol (VITAMIN D2) [isdol (50,000 Unit)] 50,000 unit PO Fr@0900 #12 capsule Ferrous Sulfate 325 mg PO TIDWM #90 tablet Gabapentin [Neurontin] 300 mg PO TID 1 Days #90 capsule Metoprolol [Lopressor] 50 mg PO BID #60 tablet Omeprazole [PriLOSEC] 20 mg PO BIDAC #60 capsule.dr Antonio [Diovan] 160 mg PO DAILY #30 tablet Zinc Sulfate 220 mg PO BID #60 capsule Home Medications: Acetaminophen [Tylenol] 650 mg PO Q4HR PRN tablet 08/22/17 [Rx] Albuterol Sulfate [Albuterol Inhaler] 2 puff IH [id number] PRN inhaler 08/22/17 [ Rx] Budesonide/Formoterol 80/4.5 [Symbicort 80/4.5] 2 puff IH BIDR inhaler [Rx] Ipratropium/Albuterol Neb [Duoneb] 3 ml IH [id number] PRN inhsol 08/22/17 [Rx] Polyethylene Glycol 3350 [MiraLAX] 17 gm PO DAILY PRN powd.pack 08/22/17 [Rx] Sennosides/Docusate Sodium [Senna Plus] 1 each PO BID PRN tablet 08/22/17 [Rx] Sertraline [Zoloft] 100 mg PO DAILY tablet 08/22/17 [Rx] Tiotropium [Spiriva] 18 mcg IH DAILYR inh 08/22/17 [Rx] metFORMIN [Glucophage] 500 mg PO BIDWM tablet 08/22/17 [Rx] predniSONE [PredniSONE] 10 mg PO DAILY tablet 08/22/17 [Rx] Tamsulosin [Flomax] 0.4 mg PO DAILY 08/30/17 [History] Ascorbic Acid [Vitamin C] 500 mg PO DAILY #30 tablet 09/06/17 [Rx] Buspirone HCl [Buspar] 15 mg PO BID PRN #60 tablet 09/06/17 [Rx] Diltiazem CD (24hr) [Cardizem CD] 360 mg PO DAILY #30 cap.er.24h 09/06/17 [Rx] Ergocalciferol (VITAMIN D2) [Drisdol (50,000 Unit)] 50,000 unit PO Fr@0900 #12 capsule 09/06/17 [Rx] Ferrous Sulfate 325 mg PO TIDWM #90 tablet 09/06/17 [Rx] Gabapentin [Neurontin] 300 mg PO TID 1 Days #90 capsule 09/06/17 [Rx] Metoprolol [Lopressor] 50 mg PO BID #60 tablet 09/06/17 [Rx] Omeprazole [PriLOSEC] 20 mg PO BIDAC #60 capsule.dr 09/06/17 [Rx] Potassium Chloride 20 meq PO BID #0 tab.er.prt 09/06/17 [Rx] Valsartan [Diovan] 160 mg PO DAILY #30 tablet 09/06/17 [Rx] Zinc Sulfate 220 mg PO BID #60 capsule 09/06/17 [Rx] hydroCHLOROthiazide [Hydrochlorothiazide] 50 mg PO DAILY #0 tablet 09/06/17 [Rx] Allergies/Adverse Reactions: 3 Allergy/AdvReac Type Severity Reaction Status Date / Time lisinopril AdvReac Mild Cough Verified 08/09/17 20:33 Date of admission: 08/29/17 21:32 Primary care physician: Padmini Bonner, Consults: 08/29/17 22:14 Consult to Occupational Therapy [CONS] Routine Comment: Evaluate, develop and implement POC Reason for Consult: Eval and Treat Does patient have active BEDREST order?: No Is patient medically & hemodynamically stable?: Yes Patient assessed for mobility or mobilized this visit?: No Consult to Physical Therapy [CONS] Routine Comment: Evaluate, develop and implement POC Reason for Consult: Eval and Treat Does patient have active BEDREST order?: No Is patient medically & hemodynamically stable?: Yes Patient assessed for mobility or mobilized this visit?: No Consult to Recreational Therapy [CONS] Routine Comment: Evaluate, develop and implement POC Consult to Pipe Coremaker [CONS] Routine Reason for SW Consult: Discharge Planning 08/29/17 22:19 Consult to Physician [CONS] Routine Consulting Provider: Lamine Rush Reason for Consult: Eval and Treat Call Completed: No 08/29/17 22:20 Consult to Wound Care [CONS] Routine Reason for Consult: Eval and Treat Time Notified: 22:00 Call Completed: Yes Discharging clinician: Andres Melara Anticipated date of discharge: 09/06/17 - Constitutional Vitals: Temp Pulse Resp BP Pulse Ox 98.0 F 76 14 145/91 93 09/06/17 07:00 09/06/17 07:00 09/06/17 07:00 09/06/17 07:00 09/06/17 07:00 General appearance: Present: A&O X 3, pleasant, obese, answers questions appropriately. Absent: no acute distress - Respiratory Additional comments: Very diminished breath sounds. End-expiratory wheezes scattered today. No respiratory distress. Wearing oxygen. - Cardiovascular Cardiovascular exam: Present: distant heart sounds, RRR, +S1, +S2 - GI/Abdominal GI/Abdominal exam: Absent: tenderness - Extremities Exam Additional comments: Very edematous lower extremities with pitting edema. No skin breakdown. Elastic stockings in place - Incison Comments: His lumbar midline incision is healing nicely. The glue adhesive is coming off. There is no redness or signs of secondary infection. - Skin Additional comments: The sacral decubitus measures 2 cm x 1 cm at the most. Sharp clean edges. Depth is less than 1 cm. There is no odor or drainage. Packing and dressing was replaced by nursing staff. Multiple skin tears on his arms and forearms are covered with sterile dressings. - Patient Status Disposition: Home Health Service Condition: Good Functional capacity at discharge: uses cane/walker Overall status at discharge: patient is progressing back to baseline - Discharge Instructions Follow Up With: annmarie Mckee [Other] - 09/07/17 9:30 am annmarie mckee [Other] - 09/21/17 10:15 am Padmini Bonner MD [Primary Care Provider] - - Diet and Activity Activity: ambulate only with your walker, as per physical therapy, increase activity as tolerated, wear oxygen at all times Diet: diabetic diet - VTE Documentation of Mechanical Device: Graduated compression elastic hosiery
--- NOTE | 2017-09-06 09:45 | Physician Discharge Referral ---
Home Health/Hosp Referral Info Transfer to: Home Health Attending Provider: Provider in Charge Post Discharge: PCP - Diagnosis (1) Physical deconditioning Priority: Primary Status: Acute (2) Hypertension Priority: Secondary Status: Acute (3) Skin tear Priority: Secondary Status: Acute (4) Sacral decubitus ulcer, stage III Priority: Secondary Status: Acute (5) DM2 (diabetes mellitus, type 2) Priority: Secondary Status: Acute (6) Anemia Priority: Secondary Status: Acute (7) S/P IVC filter Priority: Secondary Status: Chronic (8) GI bleed Priority: Secondary Status: Acute (9) COPD (chronic obstructive pulmonary disease) Priority: Secondary Status: Acute (10) History of depression Priority: Secondary Status: Chronic (11) Lower extremity edema Priority: Secondary Status: Acute (12) UTI (urinary tract infection) Priority: Secondary Status: Acute - Respiratory Orders Oxygen / L per min (2-4) Smoking Cessation: Smoking cessation has been advised. For more information, call the [employer] Quit Line at 5-859-RRRS-NOW. - Dressing/Wound Care Site: Sacral decubitus. Please see the nursing notes for dressing changes. Also, multiple skin tears on arms and forearms covered and sterile dressings. - Diet/Nutrition Diet/Nutrition Orders: No Concentrated Sweets - Activity Activity Orders: Walker - Services Needed Following services are medically necessary services: Nursing, Physical Therapy, Occupational Therapy - Transfer Medications Prescriptions: Ascorbic Acid [Vitamin C] 500 mg PO DAILY #30 tablet Buspirone HCl [Buspar] 15 mg PO BID PRN #60 tablet PRN Reason: Anxiety Diltiazem CD (24hr) [Cardizem CD] 360 mg PO DAILY #30 cap.er.24h Ergocalciferol (VITAMIN D2) [Drisdol (50,000 Unit)] 50,000 unit PO Fr@0900 #12 capsule Ferrous Sulfate 325 mg PO TIDWM #90 tablet Gabapentin [Neurontin] 300 mg PO TID 1 Days #90 capsule Metoprolol [Lopressor] 50 mg PO BID #60 tablet Omeprazole [PriLOSEC] 20 mg PO BIDAC #60 capsule. Valsartan [Diovan] 160 mg PO DAILY #30 tablet Zinc Sulfate 220 mg PO BID #60 capsule Home Medications: Acetaminophen [Tylenol] 650 mg PO Q4HR PRN tablet 08/22/17 [Rx] Albuterol Sulfate [Albuterol Inhaler] 2 puff IH [id number] PRN inhaler 08/22/17 [ Rx] Budesonide/Formoterol 80/4.5 [Symbicort 80/4.5] 2 puff IH BIDR inhaler [Rx] Ipratropium/Albuterol Neb [Duoneb] 3 ml IH [id number] PRN inhsol 08/22/17 [Rx] Polyethylene Glycol 3350 [MiraLAX] 17 gm PO DAILY PRN powd.pack 08/22/17 [Rx] Sennosides/Docusate Sodium [Senna Plus] 1 each PO BID PRN tablet 08/22/17 [Rx] Sertraline [Zoloft] 100 mg PO DAILY tablet 08/22/17 [Rx] Tiotropium [Spiriva] 18 mcg IH DAILYR inh 08/22/17 [Rx] metFORMIN [Glucophage] 500 mg PO BIDWM tablet 08/22/17 [Rx] predniSONE [PredniSONE] 10 mg PO DAILY tablet 08/22/17 [Rx] Tamsulosin [Flomax] 0.4 mg PO DAILY 08/30/17 [History] Ascorbic Acid [Vitamin C] 500 mg PO DAILY #30 tablet 09/06/17 [Rx] Buspirone HCl [Buspar] 15 mg PO BID PRN #60 tablet 09/06/17 [Rx] Diltiazem CD (24hr) [Cardizem CD] 360 mg PO DAILY #30 cap.er.24h 09/06/17 [Rx] Ergocalciferol (VITAMIN D2) [Drisdol (50,000 Unit)] 50,000 unit PO Fr@0900 #12 capsule 09/06/17 [Rx] Ferrous Sulfate 325 mg PO TIDWM #90 tablet 09/06/17 [Rx] Gabapentin [Neurontin] 300 mg PO TID 1 Days #90 capsule 09/06/17 [Rx] Metoprolol [Lopressor] 50 mg PO BID #60 tablet 09/06/17 [Rx] Omeprazole [PriLOSEC] 20 mg PO BIDAC #60 capsule.dr 09/06/17 [Rx] Potassium Chloride 20 meq PO BID #0 tab.er.prt 09/06/17 [Rx] Valsartan [Diovan] 160 mg PO DAILY #30 tablet 09/06/17 [Rx] Zinc Sulfate 220 mg PO BID #60 capsule 09/06/17 [Rx] hydroCHLOROthiazide [Hydrochlorothiazide] 50 mg PO DAILY #0 tablet 09/06/17 [Rx] Allergies/Adverse Reactions: 3 Allergy/AdvReac Type Severity Reaction Status Date / Time lisinopril AdvReac Mild Cough Verified 08/09/17 20:33 Certification: Further, I certify that my clinical findings support that this patient is homebound (i.e. absences from home require considerable and taxing effort and are for medical reasons or catholic services or infrequently or short duration when for other reasons) because: Homebound Reason: Patient requires assistance of a person or device to safely leave home, Absences from home are contraindicated except to recieve medical care, Post-surgery restriction and or conditions limit ability to leave home, Leaving home requires considerable and taxing effort due to condition Attestation: My signature below is to certify that this patient is under my care and that I, or nurse practitioner, or a physician's clinical medical assistant working with me, has a face-to -face encounter with this patient.
== END 2017-09-06 12:00 | disposition home health service (06) | DRG 945 ==
LOC: INPGRE 21:32
PROVIDERS: ADMIT Family Medicine; ATTEND Family Medicine

== ENCOUNTER 2019-04-19 00:52 | Observation (INO) ==
[2019-04-19] MEDS ORDERED: levoFLOXacin 500 MG/100 ML 500 MG/100 ML BAG IVPB ONE (00:54)
[2019-04-19] MEDS ORDERED: methylPREDNISolone 125 MG/2 ML VIAL IVP ONE (00:54)
[2019-04-19] MEDS ORDERED: Ipratropium/Albuterol Neb 3 ML ONE (00:59)
[2019-04-19] MEDS ORDERED: 0.9 % Sodium Chloride 1,000 ML IVC SCH ×2 (01:00→04:10)
[2019-04-19] MEDS: Ipratropium/Albuterol Neb 3 ML IH ONE ×2 (01:00→01:54)
[2019-04-19 01:25] LABS: Basophils # 0.1 K/mcL (0.0-0.2); Basophils % 0.5 %; Eosinophils # 0.8 K/mcL (0.0-0.6); Eosinophils % 7.7 %; Hematocrit 36.8 % (37.5-50.1); Hemoglobin 11.4 g/dL (12.9-16.9); Immature Granulocytes % 0.2 % (0-4); Lymphocytes % 20.2 %; Mean Corpuscular Hemoglobin 28.9 pg (28.0-33.3); Mean Corpuscular Volume 93.4 fL (83.0-100.0); Mean Platelet Volume 9.8 fL (9.4-12.4); Monocytes # 0.6 K/mcL (0.0-1.3); Monocytes % 5.9 %; Neutrophils # 6.5 K/mcL (1.6-8.9); Platelet Count 230 K/mcL (140-400); Red Blood Count 3.94 M/mcL (4.19-5.50); Red Cell Distribution Width 15.2 % (11.5-14.5); Segmented Neutrophils % 65.5 %; White Blood Count 9.9 K/mcL (4.3-11.1)
[2019-04-19 01:27] LABS: Prothrombin Time 11.4 Seconds (9.4-12.1)
[2019-04-19 01:29] LABS: Activated Partial Thrombo Time 34.1 Seconds (26.0-36.0)
[2019-04-19 01:37] LABS: Troponin I < 0.03 ng/mL (< 0.04)
[2019-04-19 01:38] LABS: Alanine Aminotransferase 16 Units/L (7-52); Albumin 3.9 g/dL (3.5-5.7); Albumin/Globulin Ratio 1.4 (1.1-2.2); Alkaline Phosphatase 101 Units/L (34-104); Aspartate Amino Transferase 14 Units/L (13-39); BUN/Creatinine Ratio 20 (6-26); Bilirubin,Direct 0.1 mg/dL (0.0-0.2); Bilirubin,Indirect 0.2 mg/dL (0.0-1.0); Bilirubin,Total 0.3 mg/dL (0.3-1.0); Blood Urea Nitrogen 32 mg/dL (8-23); Calcium 9.5 mg/dL (8.6-10.3); Carbon Dioxide 34 mEq/L (23-29); Chloride 100 mEq/L (98-107); Globulin 2.8 g/dL (2.4-3.5); Glucose 155 mg/dL (70-105); Osmolality,Calculated 304 (280-300); Potassium 4.5 mEq/L (3.5-5.1); Sodium 142 mEq/L (136-145); Total Protein 6.7 g/dL (6.4-8.9); eGFR For African Americans 53 (> 60); eGFR For Non-African Americans 44 (> 60)
[2019-04-19 01:56] LABS: Bilirubin,Urine Negative (Negative); Blood,Urine Negative (Negative); Clarity,Urine Slightly Cloudy (Clear); Glucose,Urine (UA) Normal (Normal); Ketones,Urine Negative (Negative); Leukocyte Esterase,Urine Negative (Negative); Nitrite,Urine Negative (Negative); Protein,Urine Trace mg/dL (Neg-Trace); Specific Gravity,Urine 1.015 (1.010-1.025); Urobilinogen,Urine Normal (Normal)
[2019-04-19 01:57] LABS: Color,Urine Yellow (Yellow)
[2019-04-19 02:02] LABS: Amorphous Sediment,Urine Few per hpf (Few)
[2019-04-19] MEDS ORDERED: Azithromycin 500 MG in D5% in Water 250 ML IVPB ONE (02:15)
[2019-04-19] MEDS ORDERED: Ipratropium/Albuterol Neb 3 ML IH ONE (04:10)
[2019-04-19] MEDS ORDERED: Dextrose Gel 15 GM/37.5 ML TUBE PO PRN ×2 (04:10)
[2019-04-19] MEDS ORDERED: Naloxone 0.4 MG/ML INJ IVP PRN (04:10)
[2019-04-19] MEDS ORDERED: D5% in Water 1,000 ML IVC PRN (04:10)
[2019-04-19] MEDS ORDERED: Acetaminophen 325 MG TABLET PO PRN (04:10)
[2019-04-19] MEDS ORDERED: *HR* Dextrose 50 % in Water (Syg) 50 ML SYRINGE IVP PRN (04:10)
[2019-04-19] MEDS ORDERED: Ipratropium Neb 0.5 MG NEBULIZER ONE (04:21)
[2019-04-19] MEDS: *HR* Enoxaparin 40 MG/0.4 ML SYRINGE SQ SCH (06:29)
[2019-04-19] MEDS: Ipratropium/Albuterol Neb 3 ML IH SCH ×5 (07:37→23:34)
[2019-04-19] MEDS ORDERED: Budesonide/Formoterol 160/4.5 1 PUFF INH IH ONE (07:45)
[2019-04-19] MEDS: Budesonide/Formoterol 160/4.5 1 PUFF INH IH SCH ×2 (07:50→20:15)
[2019-04-19] MEDS ORDERED: Ipratropium Neb 0.5 MG NEBULIZER IH SCH (08:00)
[2019-04-19] MEDS: *HR* Metformin 500 MG TABLET PO SCH (08:23)
[2019-04-19] MEDS: DilTIAZem CD (24hr) 180 MG CAP.ER.24H PO SCH ×2 (08:24→21:42)
[2019-04-19] MEDS: Lactobacillus 1 EACH CAP.SPRINK PO SCH ×2 (08:24→21:42)
[2019-04-19] MEDS: MethylPREDNISolone 40 MG/ML VIAL IVP SCH ×2 (08:25→16:34)
[2019-04-19] MEDS: Furosemide 40 MG TABLET PO SCH ×2 (08:30→16:33)
[2019-04-19] MEDS: Insulin LISPRO 300 UNITS/3 ML VIAL SQ SCH ×3 (08:30→16:38)
[2019-04-19] MEDS ORDERED: Furosemide 40 MG TABLET PO SCH (09:00)
[2019-04-19] MEDS ORDERED: Gabapentin 300 MG CAPSULE PO SCH (09:00)
[2019-04-19] MEDS ORDERED: Gabapentin 300 MG CAPSULE PO PRN (09:00)
[2019-04-19] MEDS ORDERED: Tiotropium 18 MCG inhalation IH SCH (10:00)
[2019-04-19 10:14] LABS: Basophils % 0.1 %; Eosinophils % 0.2 %; Hematocrit 37.6 % (37.5-50.1); Hemoglobin 11.7 g/dL (12.9-16.9); Immature Granulocytes % 0.3 % (0-4); Lymphocytes # 0.3 K/mcL (0.6-4.6); Lymphocytes % 3.8 %; Mean Corpuscular HGB Conc 31.1 g/dL (31.6-35.5); Mean Corpuscular Hemoglobin 28.8 pg (28.0-33.3); Mean Corpuscular Volume 92.6 fL (83.0-100.0); Mean Platelet Volume 9.7 fL (9.4-12.4); Monocytes % 0.2 %; Neutrophils # 8.3 K/mcL (1.6-8.9); Platelet Count 230 K/mcL (140-400); Red Blood Count 4.06 M/mcL (4.19-5.50); Red Cell Distribution Width 14.9 % (11.5-14.5); Segmented Neutrophils % 95.4 %; White Blood Count 8.7 K/mcL (4.3-11.1)
[2019-04-19 10:25] LABS: BUN/Creatinine Ratio 22 (6-26); Blood Urea Nitrogen 31 mg/dL (8-23); Calcium 9.4 mg/dL (8.6-10.3); Carbon Dioxide 30 mEq/L (23-29); Chloride 99 mEq/L (98-107); Glucose 225 mg/dL (70-105); Osmolality,Calculated 296 (280-300); Potassium 5.4 mEq/L (3.5-5.1); Sodium 136 mEq/L (136-145); eGFR For African Americans > 60 (> 60); eGFR For Non-African Americans 50 (> 60)
[2019-04-19] MEDS ORDERED: Lactulose Oral Soln 20 GM/30 ML UDC PO ONE (17:30)
[2019-04-19] MEDS ORDERED: cefTRIAXone 1,000 MG in Water for inj. (sterile) 10 ML IVP SCH (18:00)
[2019-04-19 21:20] LABS: Hematocrit 35.6 % (37.5-50.1); Hemoglobin 11.3 g/dL (12.9-16.9); Immature Granulocytes % 0.4 % (0-4); Lymphocytes # 0.9 K/mcL (0.6-4.6); Mean Corpuscular HGB Conc 31.7 g/dL (31.6-35.5); Mean Corpuscular Hemoglobin 28.8 pg (28.0-33.3); Mean Corpuscular Volume 90.8 fL (83.0-100.0); Monocytes % 0.5 %; Neutrophils # 7.2 K/mcL (1.6-8.9); Platelet Count 235 K/mcL (140-400); Red Blood Count 3.92 M/mcL (4.19-5.50); Segmented Neutrophils % 88.1 %; White Blood Count 8.2 K/mcL (4.3-11.1)
[2019-04-19 21:36] LABS: Calcium 9.3 mg/dL (8.6-10.3); Phosphorous 2.8 mg/dL (2.7-4.5); Potassium 4.3 mEq/L (3.5-5.1)
[2019-04-19] MEDS: cefTRIAXone 1,000 MG in Water for inj. (sterile) 10 ML IVP SCH (21:41)
[2019-04-19 22:07] LABS: Thyroid Stimulating Hormone 0.489 mcIU/mL (0.340-5.600)
[2019-04-20] MEDS: MethylPREDNISolone 40 MG/ML VIAL IVP SCH ×3 (01:36→15:04)
[2019-04-20] MEDS: Azithromycin 500 MG in 0.9 % Sodium Chloride 250 ML IVPB SCH (01:36)
[2019-04-20] MEDS: Ipratropium/Albuterol Neb 3 ML IH SCH ×5 (03:37→21:45)
[2019-04-20] MEDS: *HR* Enoxaparin 40 MG/0.4 ML SYRINGE SQ SCH (07:02)
[2019-04-20 07:56] LABS: Hematocrit 35.2 % (37.5-50.1); Hemoglobin 11.3 g/dL (12.9-16.9); Immature Granulocytes % 0.4 % (0-4); Lymphocytes % 8.8 %; Mean Corpuscular HGB Conc 32.1 g/dL (31.6-35.5); Mean Corpuscular Hemoglobin 28.6 pg (28.0-33.3); Mean Corpuscular Volume 89.1 fL (83.0-100.0); Monocytes # 0.1 K/mcL (0.0-1.3); Neutrophils # 9.9 K/mcL (1.6-8.9); Platelet Count 246 K/mcL (140-400); Red Blood Count 3.95 M/mcL (4.19-5.50); Red Cell Distribution Width 14.9 % (11.5-14.5); Segmented Neutrophils % 89.8 %
[2019-04-20 08:16] LABS: BUN/Creatinine Ratio 26 (6-26); Blood Urea Nitrogen 34 mg/dL (8-23); Calcium 9.3 mg/dL (8.6-10.3); Carbon Dioxide 29 mEq/L (23-29); Chloride 101 mEq/L (98-107); Glucose 226 mg/dL (70-105); Magnesium 2.2 mg/dL (1.6-2.6); Osmolality,Calculated 303 (280-300); Potassium 3.8 mEq/L (3.5-5.1); Sodium 139 mEq/L (136-145); eGFR For African Americans > 60 (> 60); eGFR For Non-African Americans 54 (> 60)
[2019-04-20] MEDS: Lactulose Oral Soln 20 GM/30 ML UDC PO SCH (08:36)
[2019-04-20] MEDS: Lactobacillus 1 EACH CAP.SPRINK PO SCH ×2 (08:37→21:42)
[2019-04-20] MEDS: DilTIAZem CD (24hr) 180 MG CAP.ER.24H PO SCH ×2 (08:37→21:42)
[2019-04-20] MEDS: Insulin LISPRO 300 UNITS/3 ML VIAL SQ SCH ×3 (08:38→16:30)
[2019-04-20] MEDS: Furosemide 40 MG TABLET PO SCH (08:53)
[2019-04-20] MEDS: Budesonide/Formoterol 160/4.5 1 PUFF INH IH SCH ×2 (09:15→21:44)
[2019-04-20] MEDS: *HR* Metformin 500 MG TABLET PO SCH (10:24)
[2019-04-20 13:17] LABS: Acinetobacter baumannii by PCR Not Detected (Not Detect); Candida albicans by PCR Not Detected (Not Detect); Candida glabrata by PCR Not Detected (Not Detect); Candida krusei by PCR Not Detected (Not Detect); Candida parapsilosis by PCR Not Detected (Not Detect); Candida tropicalis by PCR Not Detected (Not Detect); Enterobacter cloacae Cmplx PCR Not Detected (Not Detect); Enterobacteriaceae by PCR Not Detected (Not Detect); Enterococcus by PCR Not Detected (Not Detect); Escherichia coli by PCR Not Detected (Not Detect); Klebsiella oxytoca by PCR Not Detected (Not Detect); Klebsiella pneumoniae by PCR Not Detected (Not Detect); Proteus by PCR Not Detected (Not Detect); Pseudomonas aeruginosa by PCR Not Detected (Not Detect); Serratia marcescens by PCR Not Detected (Not Detect); Staphylococcus aureus by PCR Not Detected (Not Detect); Staphylococcus by PCR DETECTED (Not Detect); Streptococcus agalactiae(B)PCR Not Detected (Not Detect); Streptococcus by PCR Not Detected (Not Detect); Streptococcus pneumoniae PCR Not Detected (Not Detect); Streptococcus pyogenes (A) PCR Not Detected (Not Detect); mecA Methicillin-Resist Gene DETECTED (Not Detect)
[2019-04-20] MEDS: Furosemide 40 MG/4 ML VIAL IVP SCH (15:04)
[2019-04-20] MEDS: cefTRIAXone 1,000 MG in Water for inj. (sterile) 10 ML IVP SCH (21:42)
[2019-04-21] MEDS: Ipratropium/Albuterol Neb 3 ML IH SCH ×4 (02:26→12:50)
[2019-04-21] MEDS: MethylPREDNISolone 40 MG/ML VIAL IVP SCH ×2 (02:26→08:18)
[2019-04-21] MEDS: Azithromycin 500 MG in 0.9 % Sodium Chloride 250 ML IVPB SCH (02:27)
[2019-04-21 06:00] LABS: Basophils % 0.1 %; Hematocrit 35.3 % (37.5-50.1); Hemoglobin 11.4 g/dL (12.9-16.9); Immature Granulocytes % 0.7 % (0-4); Lymphocytes # 0.7 K/mcL (0.6-4.6); Lymphocytes % 5.8 %; Mean Corpuscular HGB Conc 32.3 g/dL (31.6-35.5); Mean Corpuscular Hemoglobin 28.9 pg (28.0-33.3); Mean Corpuscular Volume 89.4 fL (83.0-100.0); Mean Platelet Volume 10.2 fL (9.4-12.4); Monocytes # 0.2 K/mcL (0.0-1.3); Neutrophils # 10.6 K/mcL (1.6-8.9); Platelet Count 247 K/mcL (140-400); Red Blood Count 3.95 M/mcL (4.19-5.50); Red Cell Distribution Width 15.2 % (11.5-14.5); Segmented Neutrophils % 91.4 %; White Blood Count 11.6 K/mcL (4.3-11.1)
[2019-04-21 06:46] LABS: Calcium 8.8 mg/dL (8.6-10.3); Potassium 3.4 mEq/L (3.5-5.1)
[2019-04-21] MEDS: *HR* Enoxaparin 40 MG/0.4 ML SYRINGE SQ SCH (07:32)
[2019-04-21] MEDS: Budesonide/Formoterol 160/4.5 1 PUFF INH IH SCH (08:12)
[2019-04-21] MEDS: *HR* Metformin 500 MG TABLET PO SCH (08:17)
[2019-04-21] MEDS: Lactobacillus 1 EACH CAP.SPRINK PO SCH (08:17)
[2019-04-21] MEDS: DilTIAZem CD (24hr) 180 MG CAP.ER.24H PO SCH (08:17)
[2019-04-21] MEDS: Lactulose Oral Soln 20 GM/30 ML UDC PO SCH (08:17)
[2019-04-21] MEDS: Furosemide 40 MG/4 ML VIAL IVP SCH (08:18)
[2019-04-21] MEDS: Insulin LISPRO 300 UNITS/3 ML VIAL SQ SCH ×2 (08:18→11:43)
[2019-04-21 12:59] VITALS: BP 166/74
[2019-04-21] MEDS ORDERED: Furosemide Oral Soln 40 MG/4 ML UDC PO SCH (14:00)
[2019-04-21] MEDS ORDERED: Furosemide 40 MG TABLET PO ONE (14:46)
[2019-04-22] MEDS ORDERED: Furosemide 40 MG TABLET PO ONE (14:44)
== END 2019-04-21 15:10 | disposition home or self-care (01) ==
LOC: INPGRE 00:52 → EMEROOGRE 00:52 → INPGRE 03:23
PROVIDERS: ADMIT Family Medicine; ATTEND Family Medicine